=== PATIENT | female | born 1965 | race African-American/Black ===

== ENCOUNTER 2016-03-25 10:38 | Inpatient (IN) | payer BC, OTHER ==
[2016-03-25] VITALS (14 sets, daily range): BP systolic 85–137; BP diastolic 30–89
[~2016-03-25] VITALS: Ht 162.6 cm; Wt 111.5 kg
[~2016-03-25 10:38] MED LIST: AMIODARONE HCL 900 MG IV ONE
[2016-03-25] MEDS ORDERED: SODIUM CHLORIDE 0.9% 1,000 ML IV ONE (10:47)
[2016-03-25] MEDS ORDERED: ETOMIDATE (2MG/ML) 20ML VIAL IV ONE ×2 (10:50→17:15)
[2016-03-25] MEDS ORDERED: SUCCINYLCHOLINE CHLORIDE 20 MG/ML 10ML VIAL IV ONE ×2 (10:50→17:15)
[2016-03-25] MEDS ORDERED: cefTRIAXone 1GM/50ML D5W 50 ML IV ONE (11:00)
[2016-03-25] MEDS ORDERED: MIDAZOLAM DRIP 100 mg/100mL NS 100 ML IV ONE ×2 (11:06→16:16)
[2016-03-25] MEDS ORDERED: AMIODARONE HCL 900 MG in DEXTROSE 500 ML IV SCH ×2 (11:07→17:07)
[2016-03-25 11:12] LABS: Basophils # (auto) 0 uL; Basophils % (auto) 0.5 % (0.0-2.0); Eosinophils # (auto) 0 uL; Eosinophils % (auto) 0.7 % (0.0-7.0); Hematocrit 41.4 % (36.0-46.0); Hemoglobin 13.5 g/dL (12.2-16.2); Lymphocytes # (auto) 4.2 uL; Lymphocytes % (auto) 60.2 % (10.0-50.0); Mean Corpuscular Hemoglobin 30.7 pg (28.0-32.0); Mean Corpuscular Hgb Conc. 32.6 g/dL (32.0-36.0); Mean Corpuscular Volume 94.2 fL (80.0-100.0); Mean Platelet Volume 9.9 fL (7.4-10.4); Monocytes # (auto) 0.2 uL; Neutrophils # (auto) 2.5 uL; Neutrophils % (auto) 35.6 % (37.0-80.0); Platelet Count (auto) 221 10^3/uL (140-450); Red Cell Distribution Width 14.2 % (11.6-16.0); White Blood Cell 6.9 10^3/uL (4.4-10.8)
[2016-03-25] MEDS: MIDAZOLAM DRIP 100 mg/100mL NS 100 ML IV SCH ×2 (11:13→21:06)
[2016-03-25 11:22] LABS: Albumin 3.3 g/dL (3.4-5.0); Bilirubin, Total 0.3 mg/dL (0.2-1.0); Calcium 7.8 mg/dL (8.5-10.1); Potassium 3.4 mmol/L (3.5-5.1); Total Protein 7.8 g/dL (6.4-8.2)
[2016-03-25 11:25] LABS: B-Type Natriuretic Peptide 97.09 pg/mL (0-100)
[2016-03-25 11:26] LABS: INR 1.11 (0.9-1.15); Partial Thromboplastin Time 27.8 sec (22.64-33.71); Prothrombin Time 11.4 sec (9.37-12.3); REFLEX LACTIC ACID YES OR NO YES
[2016-03-25 12:38] LABS: Urine Bilirubin Negative (Negative); Urine Ca Oxalate Crystal FEW (None Seen); Urine Color Yellow (Yellow); Urine Glucose Normal (Normal); Urine Ketone Negative (Negative); Urine Mucus FEW (None Seen); Urine Nitrite Negative (Negative); Urine RBC 46 /hpf (0 - 4); Urine Squamous Epithelial Cell FEW /hpf (<5); Urine Urobilinogen Normal (Negative); Urine pH 6.5 (5.0-8.0)
[2016-03-25 12:45] LABS: Urine Blood 2+ /uL (Negative)
[2016-03-25 13:55] LABS: Lactic Acid 3.8 mmol/L (0.4-2.0)
[2016-03-25 14:05] LABS: REFLEX LACTIC ACID YES OR NO YES
[2016-03-25] MEDS ORDERED: PROMETHAZINE HCL 25 MG/ML 1ML IV PRN (14:15)
[2016-03-25] MEDS ORDERED: LORazepam 2MG/ML-1ML VIAL IV PRN (14:15)
[2016-03-25] MEDS ORDERED: MORPHINE SULF INJ 2 MG/ML SYRINGE 1ML IV PRN ×2 (14:15)
[2016-03-25] MEDS ORDERED: NITROGLYCERIN 0.4 MG SL TAB SL PRN (14:15)
[2016-03-25] MEDS ORDERED: DEXTROSE (50%) 50ML SYRG IV PRN (14:15)
[2016-03-25 15:07] LABS: Partial Thromboplastin Time 26.6 sec (22.64-33.71)
[2016-03-25 15:08] LABS: INR 1.17 (0.9-1.15)
[2016-03-25 15:25] LABS: Lactic Acid 3.8 mmol/L (0.4-2.0)
[2016-03-25 15:40] LABS: REFLEX LACTIC ACID YES OR NO NO
[2016-03-25 16:30] LABS: Hematocrit 42.6 % (36.0-46.0); Hemoglobin 13.9 g/dL (12.2-16.2)
[2016-03-25 16:50] LABS: Lactic Acid 2.8 mmol/L (0.4-2.0)
[2016-03-25 16:55] LABS: REFLEX LACTIC ACID YES OR NO NO
[2016-03-25] MEDS: PROPOFOL 100 ML IV SCH (17:59)
[2016-03-25] MEDS: InsuLIN REG 1unit/0.01ml Soln (100units/ml) SC SCH (19:40)
[2016-03-25] MEDS: ACCU-CHEK COMFORT CURVE STRIP VI SCH (19:40)
[2016-03-25 22:40] LABS: Hematocrit 43.3 % (36.0-46.0); Hemoglobin 14.1 g/dL (12.2-16.2)
[2016-03-26] VITALS (88 sets, daily range): BP systolic 91–145; BP diastolic 8–89
[2016-03-26] MEDS: ACCU-CHEK COMFORT CURVE STRIP VI SCH ×3 (00:20→12:00)
[2016-03-26] MEDS: PROPOFOL 100 ML IV SCH ×3 (00:27→15:11)
[2016-03-26] MEDS: InsuLIN REG 1unit/0.01ml Soln (100units/ml) SC SCH ×3 (05:59→12:00)
[2016-03-26 06:34] LABS: Albumin 2.8 g/dL (3.4-5.0); BUN/Creatinine Ratio 14.9; Bilirubin, Total 0.4 mg/dL (0.2-1.0); Calcium 7.4 mg/dL (8.5-10.1); Potassium 3.1 mmol/L (3.5-5.1); Total Protein 6.6 g/dL (6.4-8.2)
[2016-03-26 07:29] LABS: SUSPECT VIEW TRANSMISSION
[2016-03-26 07:46] LABS: Hematocrit 35.4 % (36.0-46.0); Hemoglobin 12.5 g/dL (12.2-16.2); Mean Corpuscular Hemoglobin 34.5 pg (28.0-32.0); Mean Corpuscular Hgb Conc. 35.4 g/dL (32.0-36.0); Mean Corpuscular Volume 97.3 fL (80.0-100.0); Mean Platelet Volume 9.9 fL (7.4-10.4); Platelet Count (auto) 131 10^3/uL (140-450); Red Cell Distribution Width 14.6 % (11.6-16.0); White Blood Cell 10.3 10^3/uL (4.4-10.8)
[2016-03-26 08:11] LABS: Burr Cells FEW; Large Platelets FEW; Metamyelocytes % 0; Myelocytes % 0; Platelet Estimate Decreased; Promyelocytes % 0; Reactive Lymphocytes 0
[2016-03-26] MEDS ORDERED: cefTRIAXone 1GM/50ML D5W 50 ML IV ONE (09:15)
[2016-03-26] MEDS: POTASSIUM CHL 20MEQ/100ML 100 ML IV SCH ×2 (13:39→15:11)
[2016-03-26] MEDS: PANTOPRAZOLE SODIUM 40 MG/10 ML VIAL IV SCH (13:39)
[2016-03-26] MEDS ORDERED: ENOXAPARIN SOD 40 MG/0.4 ML SYRINGE SC ONE (13:45)
[2016-03-26] MEDS: Fibersource Hn 1 Liter GT SCH (14:55)
[2016-03-26] MEDS: MIDAZOLAM DRIP 100 mg/100mL NS 100 ML IV SCH ×2 (15:11→18:13)
[2016-03-27] VITALS (68 sets, daily range): BP systolic 94–171; BP diastolic 41–104
[2016-03-27] MEDS ORDERED: cefTRIAXone 1GM/50ML D5W 50 ML IV SCH (09:00)
[2016-03-27] MEDS: PANTOPRAZOLE SODIUM 40 MG/10 ML VIAL IV SCH (10:13)
[2016-03-27] MEDS: ENOXAPARIN SOD 40 MG/0.4 ML SYRINGE SC SCH (10:13)
[2016-03-27] MEDS: MIDAZOLAM DRIP 100 mg/100mL NS 100 ML IV SCH (10:14)
[2016-03-27] MEDS: PROPOFOL 100 ML IV SCH ×2 (12:00→23:45)
[2016-03-27 14:27] LABS: Basophils # (auto) 0 uL; Basophils % (auto) 0.1 % (0.0-2.0); Eosinophils # (auto) 0 uL; Eosinophils % (auto) 0.1 % (0.0-7.0); Hematocrit 34.3 % (36.0-46.0); Hemoglobin 11.2 g/dL (12.2-16.2); Lymphocytes % (auto) 13.9 % (10.0-50.0); Mean Corpuscular Hemoglobin 30.5 pg (28.0-32.0); Mean Corpuscular Hgb Conc. 32.8 g/dL (32.0-36.0); Mean Corpuscular Volume 93.2 fL (80.0-100.0); Mean Platelet Volume 9.2 fL (7.4-10.4); Monocytes # (auto) 0.5 uL; Monocytes % (auto) 6.5 % (0.0-12.0); Neutrophils % (auto) 79.4 % (37.0-80.0); Platelet Count (auto) 156 10^3/uL (140-450); Red Cell Distribution Width 14.2 % (11.6-16.0); White Blood Cell 7.5 10^3/uL (4.4-10.8)
[2016-03-27 14:49] LABS: Albumin 2.5 g/dL (3.4-5.0); BUN/Creatinine Ratio 12.9; Calcium 7.7 mg/dL (8.5-10.1); Potassium 3.3 mmol/L (3.5-5.1)
[2016-03-27 14:51] LABS: Bilirubin, Total 0.3 mg/dL (0.2-1.0); Total Protein 6.4 g/dL (6.4-8.2)
[2016-03-27] MEDS ORDERED: POTASSIUM CHL 10% (20 MEQ/15ML) ORAL SOLN GT ONE (19:00)
[2016-03-27] MEDS: Fibersource Hn 1 Liter GT SCH (20:27)
[2016-03-28] VITALS (59 sets, daily range): BP systolic 94–164; BP diastolic 46–108
[2016-03-28] MEDS ORDERED: POTASSIUM CHL 10% (20 MEQ/15ML) ORAL SOLN GT ONE
[2016-03-28 04:21] LABS: Basophils # (auto) 0 uL; Basophils % (auto) 0.1 % (0.0-2.0); Eosinophils # (auto) 0 uL; Eosinophils % (auto) 0.6 % (0.0-7.0); Hematocrit 34.9 % (36.0-46.0); Hemoglobin 11.5 g/dL (12.2-16.2); Lymphocytes # (auto) 1.2 uL; Lymphocytes % (auto) 18.4 % (10.0-50.0); Mean Corpuscular Hemoglobin 30.8 pg (28.0-32.0); Mean Corpuscular Hgb Conc. 32.8 g/dL (32.0-36.0); Mean Corpuscular Volume 93.6 fL (80.0-100.0); Mean Platelet Volume 9.8 fL (7.4-10.4); Monocytes # (auto) 0.4 uL; Monocytes % (auto) 6.1 % (0.0-12.0); Neutrophils # (auto) 4.9 uL; Neutrophils % (auto) 74.8 % (37.0-80.0); Platelet Count (auto) 147 10^3/uL (140-450); Red Cell Distribution Width 14.2 % (11.6-16.0); White Blood Cell 6.6 10^3/uL (4.4-10.8)
[2016-03-28 04:29] LABS: BUN/Creatinine Ratio 12.1; Potassium 3.4 mmol/L (3.5-5.1)
[2016-03-28] MEDS: PROPOFOL 100 ML IV SCH ×4 (06:20→22:50)
[2016-03-28] MEDS: PANTOPRAZOLE SODIUM 40 MG/10 ML VIAL IV SCH (10:24)
[2016-03-28] MEDS: ENOXAPARIN SOD 40 MG/0.4 ML SYRINGE SC SCH (10:24)
[2016-03-28] MEDS ORDERED: IOHEXOL 350 MG/ML 100ML IJ ONE (15:36)
[2016-03-28] MEDS: MIDAZOLAM DRIP 100 mg/100mL NS 100 ML IV SCH (17:57)
[2016-03-28] MEDS: FREE WATER GT SCH ×2 (18:24→22:25)
[2016-03-28] MEDS ORDERED: MORPHINE SULF INJ 2 MG/ML SYRINGE 1ML ONE (18:38)
[2016-03-28] MEDS: Fibersource Hn 1 Liter GT SCH (20:00)
[2016-03-29] VITALS (61 sets, daily range): BP systolic 97–164; BP diastolic 47–101
[2016-03-29] MEDS: PROPOFOL 100 ML IV SCH ×3 (02:05→21:45)
[2016-03-29] MEDS: FREE WATER GT SCH ×6 (02:05→21:46)
[2016-03-29] MEDS: MORPHINE SULF INJ 2 MG/ML SYRINGE 1ML IV PRN ×4 (03:48→21:44)
[2016-03-29 03:55] LABS: Basophils # (auto) 0 uL; Basophils % (auto) 0.2 % (0.0-2.0); Eosinophils # (auto) 0.1 uL; Eosinophils % (auto) 1.4 % (0.0-7.0); Hematocrit 34.3 % (36.0-46.0); Hemoglobin 11.3 g/dL (12.2-16.2); Lymphocytes # (auto) 1.4 uL; Lymphocytes % (auto) 22.5 % (10.0-50.0); Mean Corpuscular Hemoglobin 30.8 pg (28.0-32.0); Mean Corpuscular Hgb Conc. 33.1 g/dL (32.0-36.0); Mean Corpuscular Volume 93.2 fL (80.0-100.0); Mean Platelet Volume 9.4 fL (7.4-10.4); Monocytes # (auto) 0.5 uL; Monocytes % (auto) 8.8 % (0.0-12.0); Neutrophils % (auto) 67.1 % (37.0-80.0); Platelet Count (auto) 158 10^3/uL (140-450); Red Cell Distribution Width 14.2 % (11.6-16.0)
[2016-03-29 06:25] LABS: Potassium 3.3 mmol/L (3.5-5.1)
[2016-03-29 06:35] LABS: BUN/Creatinine Ratio 12.9
[2016-03-29] MEDS ORDERED: CARVEDILOL 12.5 MG TAB ONE (09:49)
[2016-03-29] MEDS: ASPirin 81 mg TAB PO SCH (10:15)
[2016-03-29] MEDS: CARVEDILOL 3.125 MG TAB PO SCH ×2 (10:15→21:45)
[2016-03-29] MEDS: ENOXAPARIN SOD 40 MG/0.4 ML SYRINGE SC SCH (10:15)
[2016-03-29] MEDS: PANTOPRAZOLE SODIUM 40 MG/10 ML VIAL IV SCH (10:15)
[2016-03-29] MEDS ORDERED: SODIUM CHLORIDE 0.9% 1,000 ML IV SCH (11:45)
[2016-03-29] MEDS ORDERED: POTASSIUM CHL 10% (20 MEQ/15ML) ORAL SOLN GT ONE (11:45)
[2016-03-29] MEDS ORDERED: LIDOCAINE 1% HCL (LOCAL ANESTH.) INJ 20ML MDV ID ONE (14:45)
[2016-03-29] MEDS: SOD CHL 0.45% 1,000 ML IV SCH (15:00)
[2016-03-29] MEDS: MIDAZOLAM DRIP 100 mg/100mL NS 100 ML IV SCH (18:13)
[2016-03-29] MEDS ORDERED: POTASSIUM CHL 10% (20 MEQ/15ML) ORAL SOLN ONE (18:38)
[2016-03-29] MEDS ORDERED: LIDOCAINE HCL 100 MG/5ML (2%) SYRG INJ IV ONE (18:38)
[2016-03-29] MEDS ORDERED: AMIODARONE HCL 900 MG in DEXTROSE 500 ML IV SCH (18:43)
[2016-03-29] MEDS ORDERED: AMIODARONE HCL 150 MG in D5W 5% 100 ML IV ONE (18:45)
[2016-03-29] MEDS ORDERED: POTASSIUM CHL 10% (20 MEQ/15ML) ORAL SOLN PO ONE (18:45)
[2016-03-29] MEDS ORDERED: LIDOCAINE 50MG/5ML INJ 5ML SYRINGE IV ONE (18:45)
[2016-03-29] MEDS: SODIUM CHLOR 0.9% PF (SALINE LOCK) 10ML VIAL IV SCH (21:44)
[2016-03-29] MEDS: ATORVASTATIN 20 MG TAB PO SCH (21:45)
[2016-03-30] VITALS (54 sets, daily range): BP systolic 96–133; BP diastolic 51–83
[2016-03-30] MEDS ORDERED: AMIODARONE HCL 900 MG in DEXTROSE 500 ML IV SCH (00:43)
[2016-03-30] MEDS: SOD CHL 0.45% 1,000 ML IV SCH (00:56)
[2016-03-30] MEDS: FREE WATER GT SCH ×6 (02:00→22:04)
[2016-03-30] MEDS: PROPOFOL 100 ML IV SCH ×4 (05:30→22:03)
[2016-03-30] MEDS: MORPHINE SULF INJ 2 MG/ML SYRINGE 1ML IV PRN ×2 (05:31→18:23)
[2016-03-30 06:53] LABS: Basophils # (auto) 0 uL; Basophils % (auto) 0.2 % (0.0-2.0); Eosinophils # (auto) 0.1 uL; Hematocrit 31.3 % (36.0-46.0); Hemoglobin 10.2 g/dL (12.2-16.2); Lymphocytes # (auto) 1.4 uL; Lymphocytes % (auto) 23.3 % (10.0-50.0); Mean Corpuscular Hemoglobin 30.3 pg (28.0-32.0); Mean Corpuscular Hgb Conc. 32.5 g/dL (32.0-36.0); Monocytes # (auto) 0.5 uL; Monocytes % (auto) 8.6 % (0.0-12.0); Neutrophils % (auto) 65.9 % (37.0-80.0); Platelet Count (auto) 169 10^3/uL (140-450); Red Cell Distribution Width 13.9 % (11.6-16.0)
[2016-03-30 07:10] LABS: BUN/Creatinine Ratio 12.7; Calcium 7.5 mg/dL (8.5-10.1); Potassium 3.5 mmol/L (3.5-5.1)
[2016-03-30] MEDS: ENOXAPARIN SOD 40 MG/0.4 ML SYRINGE SC SCH (10:00)
[2016-03-30] MEDS ORDERED: POTASSIUM CHL 10% (20 MEQ/15ML) ORAL SOLN ONE (11:12)
[2016-03-30] MEDS ORDERED: D5W/SOD CHL 0.45%/KCL 40MEQ 1,000 ML IV ONE (11:12)
[2016-03-30] MEDS: ASPirin 81 mg TAB PO SCH (11:15)
[2016-03-30] MEDS: SODIUM CHLOR 0.9% PF (SALINE LOCK) 10ML VIAL IV SCH ×2 (11:15→22:04)
[2016-03-30] MEDS: PANTOPRAZOLE SODIUM 40 MG/10 ML VIAL IV SCH (11:15)
[2016-03-30] MEDS: D5W/SOD CHL 0.45%/KCL 40MEQ 1,000 ML IV SCH ×2 (11:15→21:15)
[2016-03-30] MEDS: CARVEDILOL 3.125 MG TAB PO SCH ×2 (11:15→22:02)
[2016-03-30] MEDS ORDERED: POTASSIUM CHL 10% (20 MEQ/15ML) ORAL SOLN GT ONE (11:15)
[2016-03-30] MEDS ORDERED: LIDOCAINE 2%HCL (LOCAL ANESTH.) INJ 20ML MDV ONE (11:56)
[2016-03-30] MEDS ORDERED: IODIXANOL 320MG/ML 100ML BTL IV ONE (11:58)
[2016-03-30] MEDS: MAGNESIUM SULFATE 1GM/100ML 100 ML IV SCH ×2 (12:13→15:11)
[2016-03-30] MEDS ORDERED: MIDAZOLAM HCL 1MG/1ML-2 ML VIAL ONE (14:03)
[2016-03-30] MEDS: MIDAZOLAM DRIP 100 mg/100mL NS 100 ML IV SCH (18:13)
[2016-03-30] MEDS: ATORVASTATIN 20 MG TAB PO SCH (22:02)
[2016-03-31] VITALS (69 sets, daily range): BP systolic 96–141; BP diastolic 40–81
[2016-03-31] MEDS: PROPOFOL 100 ML IV SCH ×3 (00:44→23:18)
[2016-03-31] MEDS: FREE WATER GT SCH ×5 (02:00→22:29)
[2016-03-31] MEDS: MORPHINE SULF INJ 2 MG/ML SYRINGE 1ML IV PRN (02:52)
[2016-03-31 04:19] LABS: Albumin 2.3 g/dL (3.4-5.0); BUN/Creatinine Ratio 10.5; Bilirubin, Total 0.3 mg/dL (0.2-1.0); Calcium 7.7 mg/dL (8.5-10.1); Magnesium 2.3 mg/dL (1.6-2.6); Phosphorus 3.5 mg/dL (2.6-4.90); Total Protein 6.4 g/dL (6.4-8.2)
[2016-03-31 04:30] LABS: Basophils # (auto) 0 uL; Basophils % (auto) 0.3 % (0.0-2.0); Eosinophils # (auto) 0.1 uL; Eosinophils % (auto) 1.8 % (0.0-7.0); Hematocrit 31.4 % (36.0-46.0); Hemoglobin 10.3 g/dL (12.2-16.2); Lymphocytes # (auto) 1.2 uL; Lymphocytes % (auto) 16.9 % (10.0-50.0); Mean Corpuscular Hemoglobin 30.8 pg (28.0-32.0); Mean Corpuscular Hgb Conc. 32.7 g/dL (32.0-36.0); Mean Corpuscular Volume 94.2 fL (80.0-100.0); Mean Platelet Volume 9.4 fL (7.4-10.4); Monocytes # (auto) 0.6 uL; Monocytes % (auto) 8.4 % (0.0-12.0); Neutrophils # (auto) 5.2 uL; Neutrophils % (auto) 72.6 % (37.0-80.0); Platelet Count (auto) 162 10^3/uL (140-450); Red Cell Distribution Width 13.9 % (11.6-16.0); White Blood Cell 7.1 10^3/uL (4.4-10.8)
[2016-03-31] MEDS: D5W/SOD CHL 0.45%/KCL 40MEQ 1,000 ML IV SCH ×2 (07:15→23:57)
[2016-03-31] MEDS: PANTOPRAZOLE SODIUM 40 MG/10 ML VIAL IV SCH (09:50)
[2016-03-31] MEDS: ASPirin 81 mg TAB PO SCH (09:50)
[2016-03-31] MEDS: CARVEDILOL 3.125 MG TAB PO SCH ×2 (09:51→22:28)
[2016-03-31] MEDS: SODIUM CHLOR 0.9% PF (SALINE LOCK) 10ML VIAL IV SCH ×2 (10:02→22:29)
[2016-03-31] MEDS: ENOXAPARIN SOD 40 MG/0.4 ML SYRINGE SC SCH (10:02)
[2016-03-31] MEDS: METOCLOPRAMIDE HCL 10 MG/10ml ORAL soln GT SCH ×2 (14:07→22:29)
[2016-03-31] MEDS: FUROSEMIDE 20 MG/2 ML VIAL IV SCH (18:00)
[2016-03-31] MEDS: MIDAZOLAM DRIP 100 mg/100mL NS 100 ML IV SCH (18:13)
[2016-03-31] MEDS: ATORVASTATIN 20 MG TAB PO SCH (22:29)
[2016-04-01] VITALS (68 sets, daily range): BP systolic 89–136; BP diastolic 41–84
[2016-04-01] MEDS: PROPOFOL 100 ML IV SCH ×6 (01:07→22:30)
[2016-04-01] MEDS: FREE WATER GT SCH ×4 (04:00→22:26)
[2016-04-01 04:39] LABS: Basophils # (auto) 0 uL; Basophils % (auto) 0.1 % (0.0-2.0); Eosinophils # (auto) 0.2 uL; Eosinophils % (auto) 2.4 % (0.0-7.0); Hematocrit 31.8 % (36.0-46.0); Hemoglobin 10.7 g/dL (12.2-16.2); Lymphocytes # (auto) 0.8 uL; Lymphocytes % (auto) 10.5 % (10.0-50.0); Mean Corpuscular Hgb Conc. 33.5 g/dL (32.0-36.0); Mean Corpuscular Volume 92.3 fL (80.0-100.0); Mean Platelet Volume 8.6 fL (7.4-10.4); Monocytes # (auto) 0.1 uL; Monocytes % (auto) 1.4 % (0.0-12.0); Neutrophils # (auto) 6.8 uL; Neutrophils % (auto) 85.6 % (37.0-80.0); Platelet Count (auto) 182 10^3/uL (140-450); Red Cell Distribution Width 13.6 % (11.6-16.0)
[2016-04-01 05:06] LABS: Albumin 2.4 g/dL (3.4-5.0); BUN/Creatinine Ratio 13.1; Bilirubin, Total 0.3 mg/dL (0.2-1.0); Calcium 7.8 mg/dL (8.5-10.1); Total Protein 6.6 g/dL (6.4-8.2)
[2016-04-01] MEDS: METOCLOPRAMIDE HCL 10 MG/10ml ORAL soln GT SCH ×3 (05:48→22:26)
[2016-04-01] MEDS: FUROSEMIDE 20 MG/2 ML VIAL IV SCH ×2 (05:48→18:24)
[2016-04-01] MEDS: SODIUM CHLOR 0.9% PF (SALINE LOCK) 10ML VIAL IV SCH ×2 (10:43→22:26)
[2016-04-01] MEDS: PANTOPRAZOLE SODIUM 40 MG/10 ML VIAL IV SCH (10:43)
[2016-04-01] MEDS: ASPirin 81 mg TAB PO SCH (10:44)
[2016-04-01] MEDS: CARVEDILOL 3.125 MG TAB PO SCH ×2 (10:46→22:28)
[2016-04-01] MEDS: ENOXAPARIN SOD 40 MG/0.4 ML SYRINGE SC SCH (10:47)
[2016-04-01] MEDS ORDERED: D5W/SOD CHL 0.45%/KCL 40MEQ 1,000 ML IV SCH (11:15)
[2016-04-01] MEDS: MIDAZOLAM DRIP 100 mg/100mL NS 100 ML IV SCH (18:13)
[2016-04-01] MEDS: D5W/SOD CHL 0.45%/KCL 40MEQ 1,000 ML IV SCH (20:30)
[2016-04-01] MEDS: ATORVASTATIN 20 MG TAB PO SCH (22:26)
[2016-04-02] VITALS (94 sets, daily range): BP systolic 84–127; BP diastolic 39–82
[2016-04-02] MEDS: PROPOFOL 100 ML IV SCH ×6 (02:00→21:57)
[2016-04-02] MEDS: FREE WATER GT SCH ×4 (04:27→21:56)
[2016-04-02] MEDS ORDERED: ACETAMINOPHEN 650 mg PER 20 mL UD ONE (05:32)
[2016-04-02] MEDS: FUROSEMIDE 20 MG/2 ML VIAL IV SCH ×2 (05:32→17:44)
[2016-04-02] MEDS: METOCLOPRAMIDE HCL 10 MG/10ml ORAL soln GT SCH (05:32)
[2016-04-02] MEDS: MORPHINE SULF INJ 2 MG/ML SYRINGE 1ML IV PRN (08:08)
[2016-04-02 08:11] LABS: BUN/Creatinine Ratio 13.5; Calcium 7.8 mg/dL (8.5-10.1); Potassium 3.6 mmol/L (3.5-5.1)
[2016-04-02 08:13] LABS: Basophils # (auto) 0 uL; Basophils % (auto) 0.1 % (0.0-2.0); Eosinophils # (auto) 0.1 uL; Eosinophils % (auto) 1.5 % (0.0-7.0); Hematocrit 32.8 % (36.0-46.0); Hemoglobin 11.1 g/dL (12.2-16.2); Lymphocytes # (auto) 0.9 uL; Lymphocytes % (auto) 10.9 % (10.0-50.0); Mean Corpuscular Hemoglobin 30.9 pg (28.0-32.0); Mean Corpuscular Volume 90.8 fL (80.0-100.0); Monocytes # (auto) 0.9 uL; Monocytes % (auto) 10.5 % (0.0-12.0); Neutrophils # (auto) 6.6 uL; Platelet Count (auto) 229 10^3/uL (140-450); Red Cell Distribution Width 13.1 % (11.6-16.0); White Blood Cell 8.5 10^3/uL (4.4-10.8)
[2016-04-02] MEDS: Fibersource Hn 1 Liter GT SCH (09:00)
[2016-04-02] MEDS: ENOXAPARIN SOD 40 MG/0.4 ML SYRINGE SC SCH (10:12)
[2016-04-02] MEDS: PANTOPRAZOLE SODIUM 40 MG/10 ML VIAL IV SCH (10:12)
[2016-04-02] MEDS: SODIUM CHLOR 0.9% PF (SALINE LOCK) 10ML VIAL IV SCH ×2 (10:14→21:57)
[2016-04-02] MEDS: CARVEDILOL 3.125 MG TAB PO SCH ×2 (10:14→22:00)
[2016-04-02] MEDS: ASPirin 81 mg TAB PO SCH (10:15)
[2016-04-02] MEDS ORDERED: cefTRIAXone 1GM/50ML D5W 50 ML IV ONE (11:00)
[2016-04-02] MEDS ORDERED: VANCOMYCIN PER PHARMACY 0 MG IV SCH (11:00)
[2016-04-02] MEDS ORDERED: AMIODARONE HCL 150 MG in D5W 5% 100 ML IV ONE (11:30)
[2016-04-02] MEDS: VANCOMYCIN 1,250 MG in D5W 5% 250 ML IV SCH ×2 (11:31→23:39)
[2016-04-02] MEDS ORDERED: AMIODARONE HCL 900 MG in DEXTROSE 500 ML IV SCH (11:38)
[2016-04-02] MEDS: D5W/SOD CHL 0.45%/KCL 40MEQ 1,000 ML IV SCH (15:15)
[2016-04-02] MEDS: AMIODARONE HCL 900 MG in DEXTROSE 500 ML IV SCH (17:38)
[2016-04-02] MEDS: MIDAZOLAM DRIP 100 mg/100mL NS 100 ML IV SCH (18:13)
[2016-04-02] MEDS: ATORVASTATIN 20 MG TAB PO SCH (21:57)
[2016-04-03] VITALS (100 sets, daily range): BP systolic 79–177; BP diastolic 33–99
[2016-04-03] MEDS ORDERED: NOREPINEPHRINE BITARTRATE 250 ML IV ONE (01:47)
[2016-04-03] MEDS: NOREPINEPHRINE BITARTRATE 250 ML IV SCH (02:13)
[2016-04-03] MEDS: PROPOFOL 100 ML IV SCH ×5 (02:20→10:55)
[2016-04-03 04:09] LABS: Albumin 2.4 g/dL (3.4-5.0); BUN/Creatinine Ratio 14.3; Bilirubin, Total 0.5 mg/dL (0.2-1.0); Calcium 7.8 mg/dL (8.5-10.1); Potassium 3.5 mmol/L (3.5-5.1); Total Protein 6.8 g/dL (6.4-8.2)
[2016-04-03] MEDS: FREE WATER GT SCH ×4 (04:22→22:14)
[2016-04-03] MEDS: ACETAMINOPHEN 650 mg PER 20 mL UD GT PRN (04:25)
[2016-04-03] MEDS: FUROSEMIDE 20 MG/2 ML VIAL IV SCH (06:25)
[2016-04-03] MEDS: cefTRIAXone 1GM/50ML D5W 50 ML IV SCH (09:00)
[2016-04-03] MEDS: ASPirin 81 mg TAB PO SCH (09:34)
[2016-04-03] MEDS: PANTOPRAZOLE SODIUM 40 MG/10 ML VIAL IV SCH (09:34)
[2016-04-03] MEDS: ENOXAPARIN SOD 40 MG/0.4 ML SYRINGE SC SCH (09:34)
[2016-04-03] MEDS: CARVEDILOL 3.125 MG TAB PO SCH ×2 (10:00→22:00)
[2016-04-03] MEDS: SODIUM CHLOR 0.9% PF (SALINE LOCK) 10ML VIAL IV SCH ×2 (10:00→22:14)
[2016-04-03] MEDS: D5W/SOD CHL 0.45%/KCL 40MEQ 1,000 ML IV SCH (11:15)
[2016-04-03] MEDS: VANCOMYCIN 1,250 MG in D5W 5% 250 ML IV SCH (12:00)
[2016-04-03] MEDS: AMIODARONE HCL 900 MG in DEXTROSE 500 ML IV SCH (15:32)
[2016-04-03] MEDS ORDERED: EPINEPHrine HCL 0.5 ML NEB ONE (15:36)
[2016-04-03] MEDS ORDERED: methylPREDNISolone SOD SUCC 125 MG/2 ML VL ONE (15:50)
[2016-04-03] MEDS ORDERED: diphenhdrAMINE HCL 50 MG/1 ML VL ONE (15:51)
[2016-04-03] MEDS ORDERED: diphenhdrAMINE HCL 50 MG/1 ML VL IV ONE (16:00)
[2016-04-03] MEDS ORDERED: methylPREDNISolone SOD SUCC 125 MG/2 ML VL IV ONE (16:00)
[2016-04-03] MEDS ORDERED: EPINEPHrine HCL 0.5 ML NEB NEB ONE (16:15)
[2016-04-03 17:06] LABS: Basophils # (auto) 0 uL; Basophils % (auto) 0.3 % (0.0-2.0); Eosinophils # (auto) 0.2 uL; Eosinophils % (auto) 2.3 % (0.0-7.0); Hematocrit 37.4 % (36.0-46.0); Hemoglobin 12.3 g/dL (12.2-16.2); Lymphocytes # (auto) 1.3 uL; Lymphocytes % (auto) 11.8 % (10.0-50.0); Mean Corpuscular Hemoglobin 30.7 pg (28.0-32.0); Mean Corpuscular Hgb Conc. 32.8 g/dL (32.0-36.0); Mean Corpuscular Volume 93.4 fL (80.0-100.0); Mean Platelet Volume 8.7 fL (7.4-10.4); Monocytes # (auto) 0.8 uL; Monocytes % (auto) 7.6 % (0.0-12.0); Neutrophils # (auto) 8.6 uL; Platelet Count (auto) 314 10^3/uL (140-450); Red Cell Distribution Width 13.2 % (11.6-16.0)
[2016-04-03 17:23] LABS: Albumin 2.6 g/dL (3.4-5.0); BUN/Creatinine Ratio 10.3; Calcium 7.9 mg/dL (8.5-10.1); Potassium 3.9 mmol/L (3.5-5.1)
[2016-04-03 17:25] LABS: Bilirubin, Total 0.4 mg/dL (0.2-1.0); Total Protein 7.6 g/dL (6.4-8.2)
[2016-04-03] MEDS ORDERED: fentaNYL Drip 2500mCg/250mlNS 250 ML IV SCH (18:25)
[2016-04-03] MEDS: fentaNYL Drip 2500mCg/250mlNS 250 ML IV SCH (18:42)
[2016-04-03] MEDS: MIDAZOLAM DRIP 100 mg/100mL NS 100 ML IV SCH (20:45)
[2016-04-03] MEDS: ATORVASTATIN 20 MG TAB PO SCH (22:15)
[2016-04-04] VITALS (102 sets, daily range): BP systolic 97–145; BP diastolic 47–93
[2016-04-04] MEDS: PROPOFOL 100 ML IV SCH ×2 (00:59→01:51)
[2016-04-04] MEDS: NOREPINEPHRINE BITARTRATE 250 ML IV SCH (01:47)
[2016-04-04 04:00] LABS: Basophils # (auto) 0 uL; Eosinophils # (auto) 0 uL; Hematocrit 34.2 % (36.0-46.0); Hemoglobin 11.2 g/dL (12.2-16.2); Lymphocytes # (auto) 0.6 uL; Lymphocytes % (auto) 5.3 % (10.0-50.0); Mean Corpuscular Hemoglobin 30.2 pg (28.0-32.0); Mean Corpuscular Hgb Conc. 32.8 g/dL (32.0-36.0); Mean Corpuscular Volume 92.1 fL (80.0-100.0); Mean Platelet Volume 8.9 fL (7.4-10.4); Monocytes # (auto) 0.7 uL; Neutrophils # (auto) 10.7 uL; Neutrophils % (auto) 88.7 % (37.0-80.0); Platelet Count (auto) 290 10^3/uL (140-450); Red Cell Distribution Width 12.9 % (11.6-16.0)
[2016-04-04] MEDS: FREE WATER GT SCH ×3 (04:00→18:00)
[2016-04-04 04:27] LABS: Albumin 2.4 g/dL (3.4-5.0); BUN/Creatinine Ratio 14.3; Bilirubin, Total 0.3 mg/dL (0.2-1.0); Calcium 7.8 mg/dL (8.5-10.1); Potassium 4.1 mmol/L (3.5-5.1); Total Protein 7.1 g/dL (6.4-8.2)
[2016-04-04] MEDS: cefTRIAXone 1GM/50ML D5W 50 ML IV SCH (09:08)
[2016-04-04] MEDS: D5W/SOD CHL 0.45%/KCL 40MEQ 1,000 ML IV SCH (09:09)
[2016-04-04] MEDS: CARVEDILOL 3.125 MG TAB PO SCH ×2 (10:00→22:00)
[2016-04-04] MEDS: PANTOPRAZOLE SODIUM 40 MG/10 ML VIAL IV SCH (10:12)
[2016-04-04] MEDS: ENOXAPARIN SOD 40 MG/0.4 ML SYRINGE SC SCH (10:20)
[2016-04-04] MEDS: ASPirin 81 mg TAB PO SCH (10:27)
[2016-04-04] MEDS: SODIUM CHLOR 0.9% PF (SALINE LOCK) 10ML VIAL IV SCH ×2 (10:27→22:20)
[2016-04-04] MEDS: MIDAZOLAM DRIP 100 mg/100mL NS 100 ML IV SCH (11:02)
[2016-04-04] MEDS: VANCOMYCIN 1,250 MG in D5W 5% 250 ML IV SCH ×3 (12:39)
[2016-04-04] MEDS: DEXAMETHASONE SOD PHOS 4 MG/1ML SDV INJ IV SCH (18:30)
[2016-04-04] MEDS: fentaNYL Drip 2500mCg/250mlNS 250 ML IV SCH (18:31)
[2016-04-04] MEDS: ATORVASTATIN 20 MG TAB PO SCH (22:20)
[2016-04-05] VITALS (103 sets, daily range): BP systolic 95–170; BP diastolic 47–104
[2016-04-05] MEDS: VANCOMYCIN 1,250 MG in D5W 5% 250 ML IV SCH ×2
[2016-04-05] MEDS: DEXAMETHASONE SOD PHOS 4 MG/1ML SDV INJ IV SCH ×4 (01:20→17:59)
[2016-04-05] MEDS: NOREPINEPHRINE BITARTRATE 250 ML IV SCH (01:47)
[2016-04-05] MEDS: D5W/SOD CHL 0.45%/KCL 40MEQ 1,000 ML IV SCH (03:41)
[2016-04-05 04:01] LABS: Basophils # (auto) 0 uL; Eosinophils # (auto) 0 uL; Hematocrit 34.8 % (36.0-46.0); Hemoglobin 11.3 g/dL (12.2-16.2); Lymphocytes # (auto) 0.6 uL; Lymphocytes % (auto) 8.2 % (10.0-50.0); Mean Corpuscular Hemoglobin 30.1 pg (28.0-32.0); Mean Corpuscular Hgb Conc. 32.6 g/dL (32.0-36.0); Mean Corpuscular Volume 92.5 fL (80.0-100.0); Mean Platelet Volume 8.8 fL (7.4-10.4); Monocytes # (auto) 0.4 uL; Monocytes % (auto) 5.7 % (0.0-12.0); Neutrophils # (auto) 6.6 uL; Neutrophils % (auto) 86.1 % (37.0-80.0); Platelet Count (auto) 312 10^3/uL (140-450); Red Cell Distribution Width 13.1 % (11.6-16.0); White Blood Cell 7.7 10^3/uL (4.4-10.8)
[2016-04-05 04:02] LABS: BUN/Creatinine Ratio 18.3; Calcium 8.3 mg/dL (8.5-10.1); Potassium 4.3 mmol/L (3.5-5.1)
[2016-04-05] MEDS: FREE WATER GT SCH ×4 (05:51→17:59)
[2016-04-05] MEDS: PANTOPRAZOLE SODIUM 40 MG/10 ML VIAL IV SCH (09:54)
[2016-04-05] MEDS: ceFAZolin 1GM/50ML D5W 50 ML IV SCH ×3 (09:54→21:00)
[2016-04-05] MEDS: ENOXAPARIN SOD 40 MG/0.4 ML SYRINGE SC SCH (09:54)
[2016-04-05] MEDS: ASPirin 81 mg TAB PO SCH (09:54)
[2016-04-05] MEDS: SODIUM CHLOR 0.9% PF (SALINE LOCK) 10ML VIAL IV SCH ×2 (09:55→22:00)
[2016-04-05] MEDS: CARVEDILOL 3.125 MG TAB PO SCH ×2 (10:38→22:00)
[2016-04-05] MEDS: MIDAZOLAM DRIP 100 mg/100mL NS 100 ML IV SCH (13:23)
[2016-04-05] MEDS: Isosource 1.5 Cal 1 Liter GT SCH (13:41)
[2016-04-05] MEDS: PROPOFOL 100 ML IV SCH (17:30)
[2016-04-05] MEDS: fentaNYL Drip 2500mCg/250mlNS 250 ML IV SCH (18:40)
[2016-04-05] MEDS: ATORVASTATIN 20 MG TAB PO SCH (22:00)
[2016-04-06] VITALS (98 sets, daily range): BP systolic 101–160; BP diastolic 49–94
[2016-04-06] MEDS: ceFAZolin 1GM/50ML D5W 50 ML IV SCH ×4 (03:00→21:00)
[2016-04-06 04:06] LABS: Basophils # (auto) 0 uL; Basophils % (auto) 0.1 % (0.0-2.0); Eosinophils # (auto) 0 uL; Hematocrit 33.8 % (36.0-46.0); Hemoglobin 11.1 g/dL (12.2-16.2); Lymphocytes # (auto) 0.5 uL; Mean Corpuscular Hemoglobin 30.4 pg (28.0-32.0); Mean Corpuscular Hgb Conc. 32.9 g/dL (32.0-36.0); Mean Corpuscular Volume 92.4 fL (80.0-100.0); Mean Platelet Volume 9.1 fL (7.4-10.4); Monocytes # (auto) 0.3 uL; Monocytes % (auto) 3.6 % (0.0-12.0); Neutrophils # (auto) 7.2 uL; Neutrophils % (auto) 90.3 % (37.0-80.0); Platelet Count (auto) 278 10^3/uL (140-450); Red Cell Distribution Width 12.8 % (11.6-16.0); White Blood Cell 7.9 10^3/uL (4.4-10.8)
[2016-04-06 04:23] LABS: INR 1.11 (0.9-1.15); Partial Thromboplastin Time 24.8 sec (22.64-33.71); Prothrombin Time 11.4 sec (9.37-12.3)
[2016-04-06 04:26] LABS: Albumin 2.4 g/dL (3.4-5.0); BUN/Creatinine Ratio 24.5; Bilirubin, Total 0.3 mg/dL (0.2-1.0); Calcium 8.1 mg/dL (8.5-10.1); Total Protein 7.1 g/dL (6.4-8.2)
[2016-04-06] MEDS: FREE WATER GT SCH ×4 (05:27→17:30)
[2016-04-06] MEDS: DEXAMETHASONE SOD PHOS 4 MG/1ML SDV INJ IV SCH ×3 (05:27→12:22)
[2016-04-06] MEDS: ENOXAPARIN SOD 40 MG/0.4 ML SYRINGE SC SCH (09:17)
[2016-04-06] MEDS: CARVEDILOL 3.125 MG TAB PO SCH ×2 (09:18→22:00)
[2016-04-06] MEDS: PANTOPRAZOLE SODIUM 40 MG/10 ML VIAL IV SCH (09:34)
[2016-04-06] MEDS: SODIUM CHLOR 0.9% PF (SALINE LOCK) 10ML VIAL IV SCH ×2 (09:34→22:21)
[2016-04-06] MEDS: D5W/SOD CHL 0.45%/KCL 40MEQ 1,000 ML IV SCH (09:34)
[2016-04-06] MEDS: AMIODARONE HCL 200 MG TAB PO SCH (09:35)
[2016-04-06] MEDS: NOREPINEPHRINE BITARTRATE 250 ML IV SCH (10:57)
[2016-04-06] MEDS ORDERED: HYDROmorphone HCL 2 MG/ML VL ONE (12:21)
[2016-04-06] MEDS ORDERED: MIDAZOLAM HCL 1MG/1ML-2 ML VIAL ONE ×2 (12:22→13:29)
[2016-04-06] MEDS ORDERED: ROCURONIUM 10MG/ML 10ML VIAL IV ONE (12:22)
[2016-04-06] MEDS ORDERED: fentaNYL CITRATE 100 MCG/2 ML VL ONE ×2 (12:22→13:13)
[2016-04-06] MEDS ORDERED: DEXAMETHASONE SOD PHOS 10MG/1ML VIAL INJ ONE (12:22)
[2016-04-06] MEDS ORDERED: ceFAZolin 1GM/50ML D5W 50 ML IV ONE (12:43)
[2016-04-06] MEDS: ASPirin 81 mg TAB PO SCH (15:12)
[2016-04-06] MEDS: PROPOFOL 100 ML IV SCH (19:55)
[2016-04-07] VITALS (102 sets, daily range): BP systolic 83–185; BP diastolic 37–93
[2016-04-07] MEDS: ceFAZolin 1GM/50ML D5W 50 ML IV SCH ×4 (03:00→21:21)
[2016-04-07 03:48] LABS: Basophils # (auto) 0 uL; Basophils % (auto) 0.1 % (0.0-2.0); Eosinophils # (auto) 0 uL; Hematocrit 33.8 % (36.0-46.0); Lymphocytes # (auto) 0.9 uL; Lymphocytes % (auto) 8.8 % (10.0-50.0); Mean Corpuscular Hemoglobin 30.2 pg (28.0-32.0); Mean Corpuscular Hgb Conc. 32.5 g/dL (32.0-36.0); Mean Corpuscular Volume 93.1 fL (80.0-100.0); Mean Platelet Volume 8.7 fL (7.4-10.4); Monocytes # (auto) 1.1 uL; Neutrophils % (auto) 80.1 % (37.0-80.0); Platelet Count (auto) 342 10^3/uL (140-450); Red Cell Distribution Width 12.8 % (11.6-16.0); White Blood Cell 9.9 10^3/uL (4.4-10.8)
[2016-04-07 04:00] LABS: BUN/Creatinine Ratio 21.9; Calcium 8.2 mg/dL (8.5-10.1)
[2016-04-07] MEDS: FREE WATER GT SCH ×4 (05:59→19:30)
[2016-04-07] MEDS: NOREPINEPHRINE BITARTRATE 250 ML IV SCH (08:00)
[2016-04-07] MEDS: MIDAZOLAM DRIP 100 mg/100mL NS 100 ML IV SCH ×2 (08:24→21:18)
[2016-04-07] MEDS: ASPirin 81 mg TAB PO SCH (10:00)
[2016-04-07] MEDS: AMIODARONE HCL 200 MG TAB PO SCH (10:19)
[2016-04-07] MEDS: ENOXAPARIN SOD 40 MG/0.4 ML SYRINGE SC SCH (10:20)
[2016-04-07] MEDS: PANTOPRAZOLE SODIUM 40 MG/10 ML VIAL IV SCH (10:20)
[2016-04-07] MEDS: CARVEDILOL 3.125 MG TAB PO SCH ×2 (10:20→22:32)
[2016-04-07] MEDS: SODIUM CHLOR 0.9% PF (SALINE LOCK) 10ML VIAL IV SCH ×2 (10:30→22:32)
[2016-04-07] MEDS ORDERED: ONDANSETRON HCL 4 MG/2 ML VIAL ONE (17:06)
[2016-04-07] MEDS ORDERED: ONDANSETRON HCL 4 MG/2 ML VIAL IV PRN (17:15)
[2016-04-07] MEDS ORDERED: PROPOFOL 100 ML IV SCH (17:30)
[2016-04-07] MEDS: fentaNYL Drip 2500mCg/250mlNS 250 ML IV SCH ×2 (21:29→21:31)
[2016-04-07] MEDS: ATORVASTATIN 20 MG TAB PO SCH ×2 (22:32)
[2016-04-08] VITALS (77 sets, daily range): BP systolic 83–154; BP diastolic 47–107
[2016-04-08] MEDS: FREE WATER GT SCH ×5 (00:01→23:43)
[2016-04-08] MEDS: fentaNYL Drip 2500mCg/250mlNS 250 ML IV SCH (02:06)
[2016-04-08] MEDS: ceFAZolin 1GM/50ML D5W 50 ML IV SCH ×4 (03:05→21:10)
[2016-04-08 07:29] LABS: Basophils # (auto) 0.1 uL; Basophils % (auto) 0.8 % (0.0-2.0); Eosinophils # (auto) 0.2 uL; Eosinophils % (auto) 2.7 % (0.0-7.0); Hematocrit 37.2 % (36.0-46.0); Hemoglobin 12.4 g/dL (12.2-16.2); Lymphocytes # (auto) 2.4 uL; Lymphocytes % (auto) 26.5 % (10.0-50.0); Mean Corpuscular Hemoglobin 30.6 pg (28.0-32.0); Mean Corpuscular Hgb Conc. 33.3 g/dL (32.0-36.0); Mean Platelet Volume 9.1 fL (7.4-10.4); Monocytes % (auto) 10.9 % (0.0-12.0); Neutrophils # (auto) 5.4 uL; Neutrophils % (auto) 59.1 % (37.0-80.0); Platelet Count (auto) 283 10^3/uL (140-450); Red Cell Distribution Width 12.9 % (11.6-16.0); White Blood Cell 9.1 10^3/uL (4.4-10.8)
[2016-04-08] MEDS: MORPHINE SULF INJ 2 MG/ML SYRINGE 1ML IV PRN (07:35)
[2016-04-08] MEDS ORDERED: LORazepam 2MG/ML-1ML VIAL ONE (07:56)
[2016-04-08 08:01] LABS: Albumin 2.5 g/dL (3.4-5.0); BUN/Creatinine Ratio 17.9; Bilirubin, Total 0.5 mg/dL (0.2-1.0); Calcium 8.3 mg/dL (8.5-10.1); Potassium 4.5 mmol/L (3.5-5.1); Total Protein 6.9 g/dL (6.4-8.2)
[2016-04-08] MEDS ORDERED: LORazepam 2MG/ML-1ML VIAL IV ONE ×2 (08:15)
[2016-04-08] MEDS: ENOXAPARIN SOD 40 MG/0.4 ML SYRINGE SC SCH (09:17)
[2016-04-08] MEDS: PANTOPRAZOLE SODIUM 40 MG/10 ML VIAL IV SCH (09:17)
[2016-04-08] MEDS: SODIUM CHLOR 0.9% PF (SALINE LOCK) 10ML VIAL IV SCH ×2 (09:18→22:42)
[2016-04-08] MEDS: AMIODARONE HCL 200 MG TAB PO SCH (10:00)
[2016-04-08] MEDS: ASPirin 81 mg TAB PO SCH (10:00)
[2016-04-08] MEDS ORDERED: LORazepam 2MG/ML-1ML VIAL IV PRN (10:00)
[2016-04-08] MEDS: CARVEDILOL 3.125 MG TAB PO SCH ×2 (10:00→22:42)
[2016-04-08] MEDS: ATORVASTATIN 20 MG TAB PO SCH (22:42)
[2016-04-09] VITALS (47 sets, daily range): BP systolic 91–146; BP diastolic 47–93
[2016-04-09] MEDS: fentaNYL Drip 2500mCg/250mlNS 250 ML IV SCH
[2016-04-09] MEDS: Isosource 1.5 Cal 1 Liter GT SCH (00:02)
[2016-04-09] MEDS: ceFAZolin 1GM/50ML D5W 50 ML IV SCH ×4 (03:12→21:00)
[2016-04-09] MEDS: HALOPERIDOL LACTATE 5 MG/ML INJ VIAL IM PRN ×3 (03:57→16:10)
[2016-04-09] MEDS: FREE WATER GT SCH ×4 (06:00→23:34)
[2016-04-09] MEDS: ASPirin 81 mg TAB PO SCH (10:18)
[2016-04-09] MEDS: PANTOPRAZOLE SODIUM 40 MG/10 ML VIAL IV SCH (10:18)
[2016-04-09] MEDS: AMIODARONE HCL 200 MG TAB PO SCH (10:18)
[2016-04-09] MEDS: SODIUM CHLOR 0.9% PF (SALINE LOCK) 10ML VIAL IV SCH ×2 (10:18→22:21)
[2016-04-09] MEDS: CARVEDILOL 3.125 MG TAB PO SCH ×2 (10:18→22:23)
[2016-04-09] MEDS: ENOXAPARIN SOD 40 MG/0.4 ML SYRINGE SC SCH (10:19)
[2016-04-09] MEDS: ATORVASTATIN 20 MG TAB PO SCH (22:23)
[2016-04-09] MEDS: ACETAMINOPHEN 650 mg PER 20 mL UD GT PRN (22:24)
[2016-04-10] VITALS (7 sets, daily range): BP systolic 135–154; BP diastolic 84–99
[2016-04-10] MEDS: HALOPERIDOL LACTATE 5 MG/ML INJ VIAL IM PRN ×2 (03:38→22:34)
[2016-04-10] MEDS: ceFAZolin 1GM/50ML D5W 50 ML IV SCH ×4 (03:38→20:08)
[2016-04-10] MEDS: FREE WATER GT SCH ×4 (06:50→23:37)
[2016-04-10] MEDS: ASPirin 81 mg TAB PO SCH (09:34)
[2016-04-10] MEDS: PANTOPRAZOLE SODIUM 40 MG/10 ML VIAL IV SCH (09:34)
[2016-04-10] MEDS: SODIUM CHLOR 0.9% PF (SALINE LOCK) 10ML VIAL IV SCH ×2 (09:34→21:56)
[2016-04-10] MEDS: AMIODARONE HCL 200 MG TAB PO SCH (09:34)
[2016-04-10] MEDS: CARVEDILOL 3.125 MG TAB PO SCH ×2 (09:34→22:32)
[2016-04-10] MEDS: ENOXAPARIN SOD 40 MG/0.4 ML SYRINGE SC SCH (09:35)
[2016-04-10] MEDS: ATORVASTATIN 20 MG TAB PO SCH (22:32)
[2016-04-11] VITALS (7 sets, daily range): BP systolic 139–167; BP diastolic 89–100
[2016-04-11] MEDS: ACETAMINOPHEN 650 mg PER 20 mL UD GT PRN (00:26)
[2016-04-11] MEDS: ceFAZolin 1GM/50ML D5W 50 ML IV SCH ×4 (02:16→21:00)
[2016-04-11] MEDS: MORPHINE SULF INJ 2 MG/ML SYRINGE 1ML IV PRN (03:55)
[2016-04-11] MEDS: FREE WATER GT SCH ×4 (05:21→23:56)
[2016-04-11 07:10] LABS: BUN/Creatinine Ratio 18.2; Potassium 3.6 mmol/L (3.5-5.1)
[2016-04-11 07:36] LABS: Basophils # (auto) 0.1 uL; Basophils % (auto) 1.1 % (0.0-2.0); Eosinophils # (auto) 0.4 uL; Eosinophils % (auto) 4.5 % (0.0-7.0); Hematocrit 33.8 % (36.0-46.0); Hemoglobin 10.9 g/dL (12.2-16.2); Lymphocytes # (auto) 1.3 uL; Lymphocytes % (auto) 15.2 % (10.0-50.0); Mean Corpuscular Hemoglobin 29.9 pg (28.0-32.0); Mean Corpuscular Hgb Conc. 32.3 g/dL (32.0-36.0); Mean Corpuscular Volume 92.5 fL (80.0-100.0); Mean Platelet Volume 8.5 fL (7.4-10.4); Monocytes # (auto) 0.7 uL; Neutrophils # (auto) 5.8 uL; Neutrophils % (auto) 70.2 % (37.0-80.0); Platelet Count (auto) 338 10^3/uL (140-450); Red Cell Distribution Width 13.1 % (11.6-16.0); White Blood Cell 8.2 10^3/uL (4.4-10.8)
[2016-04-11] MEDS: PANTOPRAZOLE SODIUM 40 MG/10 ML VIAL IV SCH (09:32)
[2016-04-11] MEDS: CARVEDILOL 3.125 MG TAB PO SCH ×2 (09:33→22:00)
[2016-04-11] MEDS: ASPirin 81 mg TAB PO SCH (09:33)
[2016-04-11] MEDS: AMIODARONE HCL 200 MG TAB PO SCH (09:33)
[2016-04-11] MEDS: SODIUM CHLOR 0.9% PF (SALINE LOCK) 10ML VIAL IV SCH ×2 (09:33→21:21)
[2016-04-11] MEDS ORDERED: LORazepam 2MG/ML-1ML VIAL IV PRN (11:45)
[2016-04-11] MEDS: SODIUM CHLORIDE 0.9% 1,000 ML IV SCH (11:45)
[2016-04-11] MEDS ORDERED: CALC-386 OR (18:00)
[2016-04-11] MEDS ORDERED: CYAN1TAB14 PO (18:00)
[2016-04-11] MEDS ORDERED: RANITAB8 PO (18:00)
[2016-04-11] MEDS ORDERED: SERT-135 PO (18:00)
[2016-04-11] MEDS: ATORVASTATIN 20 MG TAB PO SCH (22:00)
[2016-04-12] MEDS: SODIUM CHLORIDE 0.9% 1,000 ML IV SCH (00:31)
[2016-04-12] MEDS: ceFAZolin 1GM/50ML D5W 50 ML IV SCH ×4 (02:56→21:18)
[2016-04-12 04:18] VITALS: BP 144/65
[2016-04-12] MEDS: FREE WATER GT SCH (05:33)
[2016-04-12] MEDS ORDERED: VANCOMYCIN 1GM/250ML D5W 250 ML IV ONE (06:33)
[2016-04-12] MEDS ORDERED: SODIUM CHLORIDE 0.9% 300 ML IV ONE (06:45)
[2016-04-12] MEDS ORDERED: fentaNYL CITRATE 100 MCG/2 ML VL ONE (07:13)
[2016-04-12] MEDS ORDERED: MIDAZOLAM HCL 1MG/1ML-2 ML VIAL ONE (07:13)
[2016-04-12] MEDS ORDERED: VANCOMYCIN HCL 1000 MG VL ONE ×2 (07:13→07:29)
[2016-04-12] MEDS ORDERED: BACITRACIN INJ 50000 UNIT VIAL ONE (07:14)
[2016-04-12] MEDS ORDERED: LIDOCAINE 2%HCL (LOCAL ANESTH.) INJ 20ML MDV ONE (07:14)
[2016-04-12] MEDS ORDERED: LABETALOL HCL 5 MG/ML 4ML SYRINGE IV ONE (07:40)
[2016-04-12] MEDS: SODIUM CHLOR 0.9% PF (SALINE LOCK) 10ML VIAL IV SCH ×2 (10:12→21:30)
[2016-04-12] MEDS: PANTOPRAZOLE SODIUM 40 MG/10 ML VIAL IV SCH (10:19)
[2016-04-12] MEDS: DOXYCYCLINE 100 MG TAB PO SCH ×2 (10:19→21:29)
[2016-04-12] MEDS: AMIODARONE HCL 200 MG TAB PO SCH (10:20)
[2016-04-12] MEDS: CARVEDILOL 3.125 MG TAB PO SCH ×2 (10:21→21:29)
[2016-04-12] MEDS: ASPirin 81 mg TAB PO SCH (10:21)
[2016-04-12 12:00] VITALS: BP 150/94
[2016-04-12] MEDS ORDERED: POTASSIUM CHL 20 Meq TABLET PO ONE (12:30)
[2016-04-12] MEDS ORDERED: FUROSEMIDE 40 MG TAB PO ONE (12:30)
[2016-04-12] MEDS ORDERED: MORPHINE SULF INJ 2 MG/ML SYRINGE 1ML IV PRN (12:30)
[2016-04-12 16:00] VITALS: BP 147/102
[2016-04-12] MEDS: VANCOMYCIN 1GM/250ML D5W 250 ML IV SCH (19:23)
[2016-04-12 20:00] VITALS: BP 150/84
[2016-04-12] MEDS: ATORVASTATIN 20 MG TAB PO SCH (21:29)
[2016-04-13] VITALS (8 sets, daily range): BP systolic 102–162; BP diastolic 65–93
[2016-04-13] MEDS: ceFAZolin 1GM/50ML D5W 50 ML IV SCH ×4 (03:15→21:29)
[2016-04-13] MEDS: VANCOMYCIN 1GM/250ML D5W 250 ML IV SCH (06:49)
[2016-04-13] MEDS: PANTOPRAZOLE 40 MG TAB PO SCH (10:01)
[2016-04-13] MEDS: DOXYCYCLINE 100 MG TAB PO SCH (10:01)
[2016-04-13] MEDS: AMIODARONE HCL 200 MG TAB PO SCH (10:02)
[2016-04-13] MEDS: ASPirin 81 mg TAB PO SCH (10:02)
[2016-04-13] MEDS: FUROSEMIDE 40 MG TAB PO SCH (10:02)
[2016-04-13] MEDS: CARVEDILOL 3.125 MG TAB PO SCH ×2 (10:03→21:34)
[2016-04-13] MEDS: POTASSIUM CHL 20 Meq TABLET PO SCH (10:03)
[2016-04-13] MEDS: SODIUM CHLOR 0.9% PF (SALINE LOCK) 10ML VIAL IV SCH ×2 (10:04→21:34)
[2016-04-13] MEDS: HYDROcodone-ACET 5/325MG TAB PO PRN ×2 (12:01→19:51)
[2016-04-13] MEDS: THROAT LOZENGES(CEPASTAT) MT PRN (12:02)
[2016-04-13] MEDS: ATORVASTATIN 20 MG TAB PO SCH (21:34)
[2016-04-14] MEDS: ceFAZolin 1GM/50ML D5W 50 ML IV SCH ×2 (02:36→09:04)
[2016-04-14 04:50] VITALS: BP 140/70
[2016-04-14] MEDS: SODIUM CHLOR 0.9% PF (SALINE LOCK) 10ML VIAL IV SCH ×2 (09:12→21:48)
[2016-04-14 09:40] VITALS: BP 138/79
[2016-04-14] MEDS: POTASSIUM CHL 20 Meq TABLET PO SCH (09:58)
[2016-04-14] MEDS: CARVEDILOL 3.125 MG TAB PO SCH ×2 (09:59→21:50)
[2016-04-14] MEDS: ASPirin 81 mg TAB PO SCH (10:00)
[2016-04-14] MEDS: PANTOPRAZOLE 40 MG TAB PO SCH (10:00)
[2016-04-14] MEDS: FUROSEMIDE 40 MG TAB PO SCH (10:00)
[2016-04-14] MEDS: AMIODARONE HCL 200 MG TAB PO SCH (10:05)
[2016-04-14] MEDS: HYDROcodone-ACET 5/325MG TAB PO PRN (10:13)
[2016-04-14] MEDS ORDERED: ACETAMINOPHEN 650 mg PER 20 mL UD GT PRN (11:45)
[2016-04-14 14:04] VITALS: BP 147/78
[2016-04-14 16:31] VITALS: BP 152/78
[2016-04-14] MEDS: ATORVASTATIN 20 MG TAB PO SCH (21:48)
[2016-04-14 21:50] VITALS: BP 156/82
[2016-04-14 23:22] VITALS: BP 142/72
[2016-04-15] MEDS: HYDROcodone-ACET 5/325MG TAB PO PRN (03:57)
[2016-04-15 05:09] VITALS: BP 144/70
[2016-04-15 06:27] LABS: Basophils # (auto) 0 uL; Basophils % (auto) 0.3 % (0.0-2.0); Eosinophils # (auto) 0.2 uL; Eosinophils % (auto) 2.2 % (0.0-7.0); Hematocrit 30.8 % (36.0-46.0); Hemoglobin 10.2 g/dL (12.2-16.2); Lymphocytes # (auto) 1.1 uL; Lymphocytes % (auto) 12.7 % (10.0-50.0); Mean Corpuscular Hemoglobin 30.8 pg (28.0-32.0); Mean Corpuscular Hgb Conc. 33.1 g/dL (32.0-36.0); Mean Corpuscular Volume 92.9 fL (80.0-100.0); Mean Platelet Volume 9.1 fL (7.4-10.4); Monocytes # (auto) 0.7 uL; Monocytes % (auto) 8.2 % (0.0-12.0); Neutrophils # (auto) 6.6 uL; Neutrophils % (auto) 76.6 % (37.0-80.0); Platelet Count (auto) 218 10^3/uL (140-450); Red Cell Distribution Width 13.2 % (11.6-16.0); White Blood Cell 8.7 10^3/uL (4.4-10.8)
[2016-04-15 07:03] LABS: BUN/Creatinine Ratio 11.1; Calcium 7.9 mg/dL (8.5-10.1); Potassium 3.1 mmol/L (3.5-5.1)
[2016-04-15 09:00] VITALS: BP 127/69
[2016-04-15] MEDS: SODIUM CHLOR 0.9% PF (SALINE LOCK) 10ML VIAL IV SCH ×2 (11:48→22:00)
[2016-04-15] MEDS: ASPirin 81 mg TAB PO SCH (11:48)
[2016-04-15] MEDS: AMIODARONE HCL 200 MG TAB PO SCH (11:50)
[2016-04-15] MEDS: POTASSIUM CHL 20 Meq TABLET PO SCH (11:50)
[2016-04-15] MEDS: PANTOPRAZOLE 40 MG TAB PO SCH (11:51)
[2016-04-15] MEDS: FUROSEMIDE 40 MG TAB PO SCH (11:51)
[2016-04-15] MEDS: CARVEDILOL 3.125 MG TAB PO SCH ×2 (11:51→21:48)
[2016-04-15 13:00] VITALS: BP 160/112
[2016-04-15] MEDS ORDERED: POTASSIUM CHL 20 Meq TABLET PO ONE (14:45)
[2016-04-15 17:00] VITALS: BP 152/80
[2016-04-15] MEDS: ATORVASTATIN 20 MG TAB PO SCH (21:47)
[2016-04-15 21:48] VITALS: BP 158/83
[2016-04-16 04:35] VITALS: BP 145/68
[2016-04-16 09:00] VITALS: BP 152/77
[2016-04-16] MEDS: POTASSIUM CHL 20 Meq TABLET PO SCH (10:00)
[2016-04-16] MEDS ORDERED: POTASSIUM CHL 10% (20 MEQ/15ML) ORAL SOLN GT ONE (10:15)
[2016-04-16] MEDS ORDERED: POTASSIUM CHL 10% (20 MEQ/15ML) ORAL SOLN PO ONE (10:45)
[2016-04-16] MEDS: CARVEDILOL 3.125 MG TAB PO SCH ×2 (10:47→22:07)
[2016-04-16] MEDS: AMIODARONE HCL 200 MG TAB PO SCH (10:47)
[2016-04-16] MEDS: PANTOPRAZOLE 40 MG TAB PO SCH (10:47)
[2016-04-16] MEDS: FUROSEMIDE 40 MG TAB PO SCH (10:47)
[2016-04-16] MEDS: SODIUM CHLOR 0.9% PF (SALINE LOCK) 10ML VIAL IV SCH ×2 (10:48→22:15)
[2016-04-16] MEDS: ASPirin 81 mg TAB PO SCH (10:48)
[2016-04-16 13:00] VITALS: BP_SYST 124; BP_SYST 145; BP_DIAS 62; BP_DIAS 91
[2016-04-16 16:51] VITALS: BP 150/78
[2016-04-16 22:00] VITALS: BP 144/66
[2016-04-16] MEDS: ATORVASTATIN 20 MG TAB PO SCH (22:03)
[2016-04-17 05:00] VITALS: BP 127/76
[2016-04-17 09:00] VITALS: BP 127/71
[2016-04-17] MEDS: PANTOPRAZOLE 40 MG TAB PO SCH (10:13)
[2016-04-17] MEDS: FUROSEMIDE 40 MG TAB PO SCH (10:13)
[2016-04-17] MEDS: CARVEDILOL 3.125 MG TAB PO SCH ×2 (10:13→22:15)
[2016-04-17] MEDS: ASPirin 81 mg TAB PO SCH (10:13)
[2016-04-17] MEDS: POTASSIUM CHL 20 Meq TABLET PO SCH (10:14)
[2016-04-17] MEDS: AMIODARONE HCL 200 MG TAB PO SCH (10:14)
[2016-04-17] MEDS: SODIUM CHLOR 0.9% PF (SALINE LOCK) 10ML VIAL IV SCH ×2 (10:21→22:13)
[2016-04-17 13:00] VITALS: BP_SYST 115; BP_SYST 160; BP_DIAS 69; BP_DIAS 90
[2016-04-17 16:53] VITALS: BP 148/75
[2016-04-17 22:10] VITALS: BP 116/67
[2016-04-17] MEDS: ATORVASTATIN 20 MG TAB PO SCH (22:15)
[2016-04-18 01:49] VITALS: BP 124/73
[2016-04-18 05:00] VITALS: BP 128/78
[2016-04-18 05:50] LABS: Basophils # (auto) 0 uL; Basophils % (auto) 0.5 % (0.0-2.0); Eosinophils # (auto) 0.3 uL; Eosinophils % (auto) 5.7 % (0.0-7.0); Hematocrit 31.7 % (36.0-46.0); Hemoglobin 10.3 g/dL (12.2-16.2); Lymphocytes # (auto) 1.6 uL; Lymphocytes % (auto) 29.5 % (10.0-50.0); Mean Corpuscular Hemoglobin 30.2 pg (28.0-32.0); Mean Corpuscular Hgb Conc. 32.5 g/dL (32.0-36.0); Mean Platelet Volume 8.8 fL (7.4-10.4); Monocytes # (auto) 0.7 uL; Monocytes % (auto) 12.4 % (0.0-12.0); Neutrophils # (auto) 2.8 uL; Neutrophils % (auto) 51.9 % (37.0-80.0); Platelet Count (auto) 199 10^3/uL (140-450); Red Cell Distribution Width 13.3 % (11.6-16.0); White Blood Cell 5.4 10^3/uL (4.4-10.8)
[2016-04-18 06:01] LABS: Potassium 3.3 mmol/L (3.5-5.1)
[2016-04-18 06:08] LABS: BUN/Creatinine Ratio 3.1; Calcium 8.1 mg/dL (8.5-10.1)
[2016-04-18 09:00] VITALS: BP 119/78
[2016-04-18] MEDS ORDERED: POTASSIUM CHL 10% (20 MEQ/15ML) ORAL SOLN PO SCH (10:00)
[2016-04-18] MEDS: AMIODARONE HCL 200 MG TAB PO SCH (10:48)
[2016-04-18] MEDS: CARVEDILOL 3.125 MG TAB PO SCH ×2 (10:53→22:06)
[2016-04-18] MEDS: ASPirin 81 mg TAB PO SCH (10:53)
[2016-04-18] MEDS: PANTOPRAZOLE 40 MG TAB PO SCH (10:53)
[2016-04-18] MEDS: FUROSEMIDE 40 MG TAB PO SCH (10:53)
[2016-04-18] MEDS: SODIUM CHLOR 0.9% PF (SALINE LOCK) 10ML VIAL IV SCH ×2 (10:56→22:19)
[2016-04-18] MEDS: POTASSIUM CHL 20 Meq TABLET PO ONE ×2 (11:30→13:19)
[2016-04-18 12:57] VITALS: BP 110/74
[2016-04-18] MEDS ORDERED: POTASSIUM CHL 10% (20 MEQ/15ML) ORAL SOLN PO ONE (13:30)
[2016-04-18 16:50] VITALS: BP 141/77
[2016-04-18 22:00] VITALS: BP 114/62
[2016-04-18] MEDS: ATORVASTATIN 20 MG TAB PO SCH (22:05)
[2016-04-18] MEDS: LORazepam 2MG/ML-1ML VIAL IV PRN (22:09)
[2016-04-19 05:00] VITALS: BP 106/51
[2016-04-19 09:00] VITALS: BP 117/69
[2016-04-19] MEDS: AMIODARONE HCL 200 MG TAB PO SCH (10:43)
[2016-04-19] MEDS: ASPirin 81 mg TAB PO SCH (10:43)
[2016-04-19] MEDS: LORazepam 2MG/ML-1ML VIAL IV PRN ×2 (10:44→18:56)
[2016-04-19] MEDS: SODIUM CHLOR 0.9% PF (SALINE LOCK) 10ML VIAL IV SCH ×2 (10:44→21:39)
[2016-04-19] MEDS: PANTOPRAZOLE 40 MG TAB PO SCH (10:44)
[2016-04-19] MEDS: CARVEDILOL 3.125 MG TAB PO SCH ×2 (10:44→21:39)
[2016-04-19 13:00] VITALS: BP 113/74
[2016-04-19] MEDS ORDERED: MORPHINE SULF INJ 2 MG/ML SYRINGE 1ML IV PRN (13:45)
[2016-04-19 16:44] VITALS: BP 112/76
[2016-04-19 21:34] VITALS: BP 114/73
[2016-04-19] MEDS: ATORVASTATIN 20 MG TAB PO SCH (21:39)
[2016-04-20 05:05] VITALS: BP 110/62
[2016-04-20 09:00] VITALS: BP 102/70
[2016-04-20] MEDS: PANTOPRAZOLE 40 MG TAB PO SCH (09:35)
[2016-04-20] MEDS: ASPirin 81 mg TAB PO SCH (09:35)
[2016-04-20] MEDS: CARVEDILOL 3.125 MG TAB PO SCH ×2 (09:36→22:14)
[2016-04-20] MEDS: SODIUM CHLOR 0.9% PF (SALINE LOCK) 10ML VIAL IV SCH ×2 (09:36→21:57)
[2016-04-20] MEDS: AMIODARONE HCL 200 MG TAB PO SCH (09:36)
[2016-04-20] MEDS ORDERED: ONDANSETRON HCL 4 MG/2 ML VIAL IV PRN (12:45)
[2016-04-20 13:00] VITALS: BP 109/70
[2016-04-20 17:00] VITALS: BP 101/41
[2016-04-20] MEDS: LORazepam 2MG/ML-1ML VIAL IV PRN (18:12)
[2016-04-20] MEDS: THROAT LOZENGES(CEPASTAT) MT PRN (19:26)
[2016-04-20 21:25] VITALS: BP 101/59
[2016-04-20] MEDS: ATORVASTATIN 20 MG TAB PO SCH (22:12)
[2016-04-20] MEDS: HYDROcodone-ACET 5/325MG TAB PO PRN (22:19)
[2016-04-21] MEDS: LORazepam 2MG/ML-1ML VIAL IV PRN (02:32)
[2016-04-21 05:22] VITALS: BP 130/83
[2016-04-21 07:31] LABS: Basophils # (auto) 0 uL; Basophils % (auto) 0.4 % (0.0-2.0); Eosinophils # (auto) 0.3 uL; Eosinophils % (auto) 4.6 % (0.0-7.0); Hematocrit 34.1 % (36.0-46.0); Lymphocytes % (auto) 18.1 % (10.0-50.0); Mean Corpuscular Hemoglobin 30.1 pg (28.0-32.0); Mean Corpuscular Hgb Conc. 32.2 g/dL (32.0-36.0); Mean Corpuscular Volume 93.5 fL (80.0-100.0); Mean Platelet Volume 8.8 fL (7.4-10.4); Monocytes # (auto) 0.5 uL; Monocytes % (auto) 9.8 % (0.0-12.0); Neutrophils # (auto) 3.7 uL; Neutrophils % (auto) 67.1 % (37.0-80.0); Platelet Count (auto) 183 10^3/uL (140-450); Red Cell Distribution Width 13.7 % (11.6-16.0); White Blood Cell 5.5 10^3/uL (4.4-10.8)
[2016-04-21 07:53] LABS: BUN/Creatinine Ratio 13.6; Calcium 8.5 mg/dL (8.5-10.1); Potassium 3.6 mmol/L (3.5-5.1)
[2016-04-21 09:00] VITALS: BP 121/64
[2016-04-21] MEDS: AMIODARONE HCL 200 MG TAB PO SCH (10:12)
[2016-04-21] MEDS: PANTOPRAZOLE 40 MG TAB PO SCH (10:13)
[2016-04-21] MEDS: SODIUM CHLOR 0.9% PF (SALINE LOCK) 10ML VIAL IV SCH ×2 (10:13→22:07)
[2016-04-21] MEDS: ASPirin 81 mg TAB PO SCH (10:13)
[2016-04-21] MEDS: CARVEDILOL 3.125 MG TAB PO SCH ×2 (10:13→22:07)
[2016-04-21 13:00] VITALS: BP 120/70
[2016-04-21 17:00] VITALS: BP 119/54
[2016-04-21] MEDS: ATORVASTATIN 20 MG TAB PO SCH (22:02)
[2016-04-21 22:13] VITALS: BP 118/68
[2016-04-22 05:09] VITALS: BP 121/69
[2016-04-22 07:00] VITALS: BP 115/65
[2016-04-22] MEDS: PANTOPRAZOLE 40 MG TAB PO SCH (10:04)
[2016-04-22] MEDS: ASPirin 81 mg TAB PO SCH (10:05)
[2016-04-22] MEDS: AMIODARONE HCL 200 MG TAB PO SCH (10:06)
[2016-04-22] MEDS: CARVEDILOL 3.125 MG TAB PO SCH ×2 (10:06→21:27)
[2016-04-22] MEDS: SODIUM CHLOR 0.9% PF (SALINE LOCK) 10ML VIAL IV SCH ×2 (10:08→21:26)
[2016-04-22 11:45] VITALS: BP 118/77
[2016-04-22] MEDS: LORazepam 2MG/ML-1ML VIAL IV PRN (14:43)
[2016-04-22 16:00] VITALS: BP 117/65
[2016-04-22] MEDS: THROAT LOZENGES(CEPASTAT) MT PRN (16:36)
[2016-04-22] MEDS: ATORVASTATIN 20 MG TAB PO SCH (21:29)
[2016-04-22 22:23] VITALS: BP 124/71
[2016-04-23 03:43] VITALS: BP 124/71
[2016-04-23 04:53] VITALS: BP 125/75
[2016-04-23 08:45] VITALS: BP 106/71
[2016-04-23] MEDS: CARVEDILOL 3.125 MG TAB PO SCH ×2 (10:00→22:22)
[2016-04-23] MEDS: ASPirin 81 mg TAB PO SCH (10:00)
[2016-04-23] MEDS: PANTOPRAZOLE 40 MG TAB PO SCH (10:00)
[2016-04-23] MEDS: AMIODARONE HCL 200 MG TAB PO SCH (10:00)
[2016-04-23] MEDS: SODIUM CHLOR 0.9% PF (SALINE LOCK) 10ML VIAL IV SCH ×2 (10:03→22:00)
[2016-04-23] MEDS: LORazepam 2MG/ML-1ML VIAL IV PRN (12:34)
[2016-04-23 12:59] VITALS: BP 118/78
[2016-04-23 17:40] VITALS: BP 126/67
[2016-04-23 22:00] VITALS: BP 121/55
[2016-04-23] MEDS: ATORVASTATIN 20 MG TAB PO SCH (22:21)
[2016-04-24 05:04] VITALS: BP 119/70
[2016-04-24 05:53] LABS: Hematocrit 30.2 % (36.0-46.0); Hemoglobin 9.9 g/dL (12.2-16.2); Mean Corpuscular Hemoglobin 30.4 pg (28.0-32.0); Mean Corpuscular Hgb Conc. 32.8 g/dL (32.0-36.0); Mean Corpuscular Volume 92.6 fL (80.0-100.0); Mean Platelet Volume 9.1 fL (7.4-10.4); Platelet Count (auto) 150 10^3/uL (140-450); Red Cell Distribution Width 13.9 % (11.6-16.0); White Blood Cell 3.7 10^3/uL (4.4-10.8)
[2016-04-24 06:06] LABS: Metamyelocytes % 0; Myelocytes % 0; Promyelocytes % 0; Prothrombin Time 11.9 sec (9.37-12.3); Reactive Lymphocytes 0
[2016-04-24 06:14] LABS: BUN/Creatinine Ratio 9.7; Calcium 8.5 mg/dL (8.5-10.1); Magnesium 2.2 mg/dL (1.6-2.6); Potassium 3.5 mmol/L (3.5-5.1)
[2016-04-24 06:17] LABS: INR 1.16 (0.9-1.15)
[2016-04-24 07:23] LABS: Anisocytosis Slight; Platelet Estimate Adequate
[2016-04-24 08:23] VITALS: BP 126/80
[2016-04-24] MEDS: AMIODARONE HCL 200 MG TAB PO SCH (09:35)
[2016-04-24] MEDS: ASPirin 81 mg TAB PO SCH (09:35)
[2016-04-24] MEDS: PANTOPRAZOLE 40 MG TAB PO SCH (09:35)
[2016-04-24] MEDS: SODIUM CHLOR 0.9% PF (SALINE LOCK) 10ML VIAL IV SCH ×2 (09:36→21:41)
[2016-04-24] MEDS: CARVEDILOL 3.125 MG TAB PO SCH ×2 (09:36→21:33)
[2016-04-24 12:50] VITALS: BP 119/62
[2016-04-24 16:41] VITALS: BP 143/85
[2016-04-24] MEDS: LORazepam 2MG/ML-1ML VIAL IV PRN (17:37)
[2016-04-24] MEDS: HYDROcodone-ACET 5/325MG TAB PO PRN (21:31)
[2016-04-24] MEDS: ATORVASTATIN 20 MG TAB PO SCH (21:32)
[2016-04-24 21:37] VITALS: BP 109/67
[2016-04-25] MEDS: LORazepam 2MG/ML-1ML VIAL IV PRN (02:09)
[2016-04-25 04:32] VITALS: BP 114/65
[2016-04-25 05:33] LABS: Prothrombin Time 12.1 sec (9.37-12.3)
[2016-04-25 05:35] LABS: Magnesium 2.2 mg/dL (1.6-2.6); Potassium 3.6 mmol/L (3.5-5.1)
[2016-04-25 05:37] LABS: INR 1.17 (0.9-1.15)
[2016-04-25 05:38] LABS: BUN/Creatinine Ratio 12.3
[2016-04-25 05:43] LABS: Basophils # (auto) 0 uL; Basophils % (auto) 0.4 % (0.0-2.0); Eosinophils # (auto) 0.3 uL; Eosinophils % (auto) 5.3 % (0.0-7.0); Hematocrit 31.4 % (36.0-46.0); Hemoglobin 10.2 g/dL (12.2-16.2); Lymphocytes # (auto) 1.4 uL; Lymphocytes % (auto) 28.7 % (10.0-50.0); Mean Corpuscular Hemoglobin 30.4 pg (28.0-32.0); Mean Corpuscular Hgb Conc. 32.5 g/dL (32.0-36.0); Mean Corpuscular Volume 93.3 fL (80.0-100.0); Mean Platelet Volume 8.8 fL (7.4-10.4); Monocytes # (auto) 0.7 uL; Monocytes % (auto) 14.9 % (0.0-12.0); Neutrophils # (auto) 2.4 uL; Neutrophils % (auto) 50.7 % (37.0-80.0); Platelet Count (auto) 137 10^3/uL (140-450); Red Cell Distribution Width 13.7 % (11.6-16.0); White Blood Cell 4.8 10^3/uL (4.4-10.8)
[2016-04-25 07:55] LABS: Platelet Estimate Adequate; RBC Morphology Normal
[2016-04-25 09:00] VITALS: BP 121/89
[2016-04-25] MEDS: PANTOPRAZOLE 40 MG TAB PO SCH (09:18)
[2016-04-25] MEDS: ASPirin 81 mg TAB PO SCH (09:18)
[2016-04-25] MEDS: AMIODARONE HCL 200 MG TAB PO SCH (09:18)
[2016-04-25] MEDS: CARVEDILOL 3.125 MG TAB PO SCH ×2 (09:19→22:34)
[2016-04-25] MEDS: SODIUM CHLOR 0.9% PF (SALINE LOCK) 10ML VIAL IV SCH ×2 (09:19→22:35)
[2016-04-25] MEDS ORDERED: LORazepam 2MG/ML-1ML VIAL IV PRN (11:30)
[2016-04-25] MEDS ORDERED: THROAT LOZENGES(CEPASTAT) MT PRN (11:30)
[2016-04-25 12:24] VITALS: BP 140/78
[2016-04-25 16:47] VITALS: BP 118/72
[2016-04-25 22:00] VITALS: BP 118/69
[2016-04-25] MEDS ORDERED: ATORVASTATIN 20 MG TAB PO SCH (22:00)
[2016-04-26 05:06] VITALS: BP 122/61
[2016-04-26 08:51] VITALS: BP 121/74
[2016-04-26] MEDS ORDERED: ASPirin 81 mg TAB PO SCH (10:00)
[2016-04-26] MEDS ORDERED: PANTOPRAZOLE 40 MG TAB PO SCH (10:00)
[2016-04-26] MEDS: CARVEDILOL 3.125 MG TAB PO SCH (10:14)
[2016-04-26] MEDS: AMIODARONE HCL 200 MG TAB PO SCH (10:14)
[2016-04-26] MEDS: SODIUM CHLOR 0.9% PF (SALINE LOCK) 10ML VIAL IV SCH (10:15)
[2016-04-26 12:26] VITALS: BP 126/76
[2016-04-26 14:18] VITALS: BP 126/76
== END 2016-04-26 15:10 | disposition home or self-care (01) | DRG 3 ==
LOC: EDBD 10:38 → ER 10:42 → OVERFLOW 10:43 → ICU WEST 17:35 → DOU IN ICU 04-10 01:20 → TELE-EAST 04-13 14:20
PROVIDERS: ADMIT Internal Medicine; ATTEND Internal Medicine
PROC: 5A12012 Performance of Cardiac Output, Single, Manual (ICD-10-PCS; 2016-03-29)
PROC: 02HV33Z Insertion of Infusion Device into Superior Vena Cava, Percutaneous Approach (ICD-10-PCS; 2016-03-29)
PROC: B41J1ZZ Fluoroscopy of Other Lower Arteries using Low Osmolar Contrast (ICD-10-PCS; 2016-03-30)
PROC: 4A023N7 Measurement of Cardiac Sampling and Pressure, Left Heart, Percutaneous Approach (ICD-10-PCS; 2016-03-30)
PROC: B2111ZZ Fluoroscopy of Multiple Coronary Arteries using Low Osmolar Contrast (ICD-10-PCS; 2016-03-30)
PROC: B2151ZZ Fluoroscopy of Left Heart using Low Osmolar Contrast (ICD-10-PCS; 2016-03-30)
PROC: 3E0102A Introduction of Anti-Infective Envelope into Subcutaneous Tissue, Open Approach (ICD-10-PCS; 2016-03-30)
PROC: 5A1955Z Respiratory Ventilation, Greater than 96 Consecutive Hours (ICD-10-PCS; 2016-04-02)
PROC: 0BH17EZ Insertion of Endotracheal Airway into Trachea, Via Natural or Artificial Opening (ICD-10-PCS; 2016-04-02)
PROC: 0B110F4 Bypass Trachea to Cutaneous with Tracheostomy Device, Open Approach (ICD-10-PCS; principal; 2016-04-06 12:45)
PROC: 0JH608Z Insertion of Defibrillator Generator into Chest Subcutaneous Tissue and Fascia, Open Approach (ICD-10-PCS; 2016-04-13)
PROC: 02HL3KZ Insertion of Defibrillator Lead into Left Ventricle, Percutaneous Approach (ICD-10-PCS; 2016-04-13)
DX: I21.4 Non-ST elevation (NSTEMI) myocardial infarction (principal); J96.01 Acute respiratory failure with hypoxia; I49.01 Ventricular fibrillation; G92 Toxic encephalopathy; J15.211 Pneumonia due to Methicillin susceptible Staphylococcus aureus; I46.9 Cardiac arrest, cause unspecified; E44.0 Moderate protein-calorie malnutrition; E87.0 Hyperosmolality and hypernatremia; G72.81 Critical illness myopathy; G93.1 Anoxic brain damage, not elsewhere classified; S27.0XXA Traumatic pneumothorax, initial encounter; S22.32XA Fracture of one rib, left side, initial encounter for closed fracture; T79.7XXA Traumatic subcutaneous emphysema, initial encounter; I42.9 Cardiomyopathy, unspecified; I47.2 Ventricular tachycardia; S27.892A Contusion of other specified intrathoracic organs, initial encounter; Z99.11 Dependence on respirator [ventilator] status; I45.81 Long QT syndrome; E87.6 Hypokalemia; E66.01 Morbid (severe) obesity due to excess calories; E78.5 Hyperlipidemia, unspecified; E11.9 Type 2 diabetes mellitus without complications; I10 Essential (primary) hypertension; S00.03XA Contusion of scalp, initial encounter; W19.XXXA Unspecified fall, initial encounter; Z98.84 Bariatric surgery status; Z82.49 Family history of ischemic heart disease and other diseases of the circulatory system; Z79.82 Long term (current) use of aspirin; Y93.89 Activity, other specified; Y92.59 Other trade areas as the place of occurrence of the external cause
CPT/HCPCS: 31500; 32551; 36415; 36569; 36600; 51702; 70450; 71010; 71250; 71275; 74176; 80048; 80053; 80061; 80202; 81001; 82550; 82805; 82962; 83036; 83605; 83735; 83880; 84100; 84132; 84443; 84484; 85007; 85014; 85018; 85025; 85027; 85049; 85379; 85610; 85652; 85730; 86141; 87040; 87070; 87077; 87081; 87086; 87186; 87205; 92526; 92610; 92950; 93005; 93306; 93970; 94002; 94003; 94640; 94660; 95819; 96365; 96366; 96368; 97001; 99144; 99152; 99291; A4565; C9113; G0434; J0330; J0690; J0696; J1100; J2250; J2405; J2704; J3010; J3480; J3490; J7060; Q9967

== ENCOUNTER → 2016-06-21 | Outpatient (CLI) | payer BC ==
[2016-06-21 10:25] LABS: Basophils # (auto) 0 uL; Basophils % (auto) 0.7 % (0.0-2.0); Eosinophils # (auto) 0.1 uL; Eosinophils % (auto) 2.5 % (0.0-7.0); Hematocrit 37.6 % (36.0-46.0); Hemoglobin 12.4 g/dL (12.2-16.2); Lymphocytes # (auto) 1.4 uL; Mean Corpuscular Hemoglobin 30.8 pg (28.0-32.0); Mean Corpuscular Hgb Conc. 32.8 g/dL (32.0-36.0); Mean Corpuscular Volume 93.7 fL (80.0-100.0); Mean Platelet Volume 9.5 fL (7.4-10.4); Monocytes # (auto) 0.3 uL; Monocytes % (auto) 9.4 % (0.0-12.0); Neutrophils # (auto) 1.1 uL; Neutrophils % (auto) 38.4 % (37.0-80.0); Platelet Count (auto) 182 10^3/uL (140-450); Red Cell Distribution Width 16.1 % (11.6-16.0); White Blood Cell 2.9 10^3/uL (4.4-10.8)
[2016-06-21 13:30] LABS: BUN/Creatinine Ratio 12.2; Bilirubin, Total 0.4 mg/dL (0.2-1.0); Calcium 8.3 mg/dL (8.5-10.1); Potassium 3.1 mmol/L (3.5-5.1); Total Protein 7.1 g/dL (6.4-8.2)
== END | disposition home or self-care (01) ==
LOC: LAB 09:16
PROVIDERS: ATTEND Internal Medicine
DX: D64.9 Anemia, unspecified (principal); E03.9 Hypothyroidism, unspecified
CPT/HCPCS: 36415; 80053; 80061; 82306; 82607; 83540; 84439; 84443; 85025

== ENCOUNTER 2016-08-14 15:47 | Inpatient (IN) | payer BC ==
[~2016-08-14] VITALS: Ht 165.1 cm; Wt 107.3 kg
[2016-08-14] MEDS ORDERED: SODIUM CHLORIDE 0.9% 1,000 ML IV ONE (16:14)
[2016-08-14] MEDS ORDERED: ASPirin 81 mg TAB PO ONE (16:15)
[2016-08-14 16:36] LABS: Basophils # (auto) 0 uL; Basophils % (auto) 0.3 % (0.0-2.0); Eosinophils # (auto) 0 uL; Eosinophils % (auto) 0.7 % (0.0-7.0); Hemoglobin 13.6 g/dL (12.2-16.2); Lymphocytes # (auto) 1.4 uL; Lymphocytes % (auto) 23.3 % (10.0-50.0); Mean Corpuscular Hemoglobin 30.3 pg (28.0-32.0); Mean Corpuscular Hgb Conc. 32.3 g/dL (32.0-36.0); Mean Corpuscular Volume 93.5 fL (80.0-100.0); Mean Platelet Volume 9.2 fL (7.4-10.4); Monocytes # (auto) 0.7 uL; Monocytes % (auto) 11.5 % (0.0-12.0); Neutrophils # (auto) 3.8 uL; Neutrophils % (auto) 64.2 % (37.0-80.0); Platelet Count (auto) 229 10^3/uL (140-450); Red Cell Distribution Width 15.7 % (11.6-16.0)
[2016-08-14 16:53] LABS: INR 1.04 (0.9-1.15); Partial Thromboplastin Time 27.1 sec (22.64-33.71); Prothrombin Time 11.2 sec (9.37-12.3)
[2016-08-14 17:12] LABS: Albumin 3.4 g/dL (3.4-5.0); BUN/Creatinine Ratio 9.2; Bilirubin, Total 0.7 mg/dL (0.2-1.0); Calcium 8.4 mg/dL (8.5-10.1); Potassium 3.1 mmol/L (3.5-5.1); Total Protein 8.2 g/dL (6.4-8.2)
[2016-08-14 17:13] LABS: B-Type Natriuretic Peptide 75.86 pg/mL (0-100)
[2016-08-14 17:19] LABS: Temperature: 21.9 C (20.0-25.0)
[2016-08-14 17:30] LABS: Urine RBC None Seen /hpf (0 - 4)
[2016-08-14] MEDS ORDERED: AMIODARONE HCL 150 MG in D5W 5% 100 ML IV ONE (17:30)
[2016-08-14] MEDS ORDERED: LORazepam 2MG/ML-1ML VIAL IV ONE (17:30)
[2016-08-14] MEDS ORDERED: AMIODARONE HCL 900 MG in DEXTROSE 500 ML IV SCH (17:33)
[2016-08-14 17:50] LABS: Urine Bilirubin Negative (Negative); Urine Blood Negative /uL (Negative); Urine Ca Oxalate Crystal FEW (None Seen); Urine Color Yellow (Yellow); Urine Glucose Normal (Normal); Urine Hyaline Cast MOD /lpf (0 - 2); Urine Ketone Negative (Negative); Urine Mucus FEW (None Seen); Urine Nitrite Negative (Negative); Urine Squamous Epithelial Cell FEW /hpf (<5)
[2016-08-14] MEDS ORDERED: POTASSIUM CHL 10% (20 MEQ/15ML) ORAL SOLN PO ONE (18:00)
[2016-08-14] MEDS ORDERED: SODIUM CHLORIDE 0.9% 1,000 ML IV SCH (23:03)
[2016-08-14] MEDS ORDERED: HYDROcodone-ACET 5/325MG TAB PO PRN (23:15)
[2016-08-14] MEDS ORDERED: MORPHINE SULF INJ 2 MG/ML SYRINGE 1ML IV PRN ×2 (23:15)
[2016-08-14] MEDS ORDERED: TEMAZEPAM 15 MG CAP PO PRN (23:15)
[2016-08-14] MEDS ORDERED: ONDANSETRON HCL 4 MG/2 ML VIAL IV PRN (23:15)
[2016-08-14] MEDS ORDERED: NITROGLYCERIN 0.4 MG SL TAB SL PRN (23:15)
[2016-08-15 00:16] VITALS: BP 153/94
[2016-08-15 04:00] VITALS: BP 134/78
[2016-08-15 04:40] LABS: Basophils # (auto) 0 uL; Basophils % (auto) 0.3 % (0.0-2.0); Eosinophils # (auto) 0 uL; Eosinophils % (auto) 0.7 % (0.0-7.0); Hematocrit 36.4 % (36.0-46.0); Lymphocytes # (auto) 1.4 uL; Mean Corpuscular Hemoglobin 31.1 pg (28.0-32.0); Mean Corpuscular Hgb Conc. 33.1 g/dL (32.0-36.0); Mean Corpuscular Volume 94.1 fL (80.0-100.0); Mean Platelet Volume 9.7 fL (7.4-10.4); Monocytes # (auto) 0.7 uL; Monocytes % (auto) 11.9 % (0.0-12.0); Neutrophils # (auto) 3.8 uL; Neutrophils % (auto) 64.1 % (37.0-80.0); Platelet Count (auto) 192 10^3/uL (140-450); Red Cell Distribution Width 15.5 % (11.6-16.0); White Blood Cell 5.9 10^3/uL (4.4-10.8)
[2016-08-15 05:00] LABS: Albumin 2.9 g/dL (3.4-5.0); BUN/Creatinine Ratio 12.9; Bilirubin, Total 0.7 mg/dL (0.2-1.0); Calcium 7.7 mg/dL (8.5-10.1); Total Protein 6.9 g/dL (6.4-8.2)
[2016-08-15] MEDS ORDERED: POTASSIUM CHL 20 Meq TABLET PO ONE (06:00)
[2016-08-15] MEDS ORDERED: AMIODARONE HCL 900 MG in DEXTROSE 500 ML IV SCH (07:59)
[2016-08-15 08:00] VITALS: BP 132/94
[2016-08-15] MEDS ORDERED: CARV6.25 PO (08:36)
[2016-08-15] MEDS ORDERED: ATO40T PO (08:37)
[2016-08-15] MEDS ORDERED: MULTTAB61 PO (08:38)
[2016-08-15] MEDS ORDERED: CYAN1TAB14 PO (08:43)
[2016-08-15] MEDS: CARVEDILOL 3.125 MG TAB PO SCH ×2 (10:31→22:02)
[2016-08-15] MEDS: MULTIPLE VITAMIN TAB PO SCH (10:31)
[2016-08-15 12:00] VITALS: BP 141/87
[2016-08-15] MEDS ORDERED: MAGNESIUM OXIDE 400 MG TAB PO ONE (12:15)
[2016-08-15] MEDS ORDERED: ASPirin 81 mg TAB PO ONE (12:15)
[2016-08-15 16:00] VITALS: BP 132/77
[2016-08-15 20:00] VITALS: BP 137/75
[2016-08-15] MEDS: ATORVASTATIN 20 MG TAB PO SCH (21:58)
[2016-08-16] VITALS: BP 124/72
[2016-08-16 04:00] VITALS: BP 133/88
[2016-08-16 05:08] LABS: BUN/Creatinine Ratio 10.1; Magnesium 1.8 mg/dL (1.6-2.6); Potassium 3.3 mmol/L (3.5-5.1)
[2016-08-16 07:58] VITALS: BP 162/77
[2016-08-16] MEDS ORDERED: POTASSIUM CHL 20 Meq TABLET PO ONE (09:30)
[2016-08-16] MEDS: MAGNESIUM OXIDE 400 MG TAB PO SCH (09:47)
[2016-08-16] MEDS: MULTIPLE VITAMIN TAB PO SCH (09:48)
[2016-08-16] MEDS: ASPirin 81 mg TAB PO SCH (09:48)
[2016-08-16] MEDS: AMIODARONE HCL 200 MG TAB PO SCH ×2 (09:48→22:36)
[2016-08-16] MEDS: CARVEDILOL 3.125 MG TAB PO SCH ×2 (09:53→22:35)
[2016-08-16 11:52] VITALS: BP 139/82
[2016-08-16] MEDS: MAGNESIUM SULFATE 1GM/100ML 100 ML IV SCH ×2 (11:52→13:00)
[2016-08-16 16:00] VITALS: BP 142/92
[2016-08-16 20:00] VITALS: BP 140/82
[2016-08-16] MEDS: ATORVASTATIN 20 MG TAB PO SCH (22:36)
[2016-08-17] VITALS: BP 137/94
[2016-08-17 04:00] VITALS: BP 134/73
[2016-08-17 05:03] LABS: BUN/Creatinine Ratio 13.6; Calcium 8.1 mg/dL (8.5-10.1); Potassium 3.3 mmol/L (3.5-5.1)
[2016-08-17 08:00] VITALS: BP 145/92
[2016-08-17] MEDS: ASPirin 81 mg TAB PO SCH (10:01)
[2016-08-17] MEDS: MULTIPLE VITAMIN TAB PO SCH (10:02)
[2016-08-17] MEDS: MAGNESIUM OXIDE 400 MG TAB PO SCH (10:02)
[2016-08-17] MEDS: AMIODARONE HCL 200 MG TAB PO SCH (10:02)
[2016-08-17] MEDS: CARVEDILOL 3.125 MG TAB PO SCH (10:08)
[2016-08-17 12:00] VITALS: BP 131/89
[2016-08-17] MEDS ORDERED: POTASSIUM CHL 20 Meq TABLET PO ONE (13:00)
[2016-08-17] MEDS ORDERED: AMIO200T33 PO (13:18)
[2016-08-17] MEDS ORDERED: MAGN400T7 PO (13:20)
[2016-08-17] MEDS ORDERED: POTA20IN2 PO (13:20)
[2016-08-17 13:28] VITALS: BP 131/89
== END 2016-08-17 16:08 | disposition home or self-care (01) | DRG 310 ==
LOC: ER 15:47 → EDUNIT# 15:47 → EDBD 15:47 → TELE 15:48 → DOU IN ICU 23:39
PROVIDERS: ADMIT Emergency Medicine; ATTEND Internal Medicine
PROC: 4B02XTZ Measurement of Cardiac Defibrillator, External Approach (ICD-10-PCS; principal; 2016-08-15)
DX: I47.1 Supraventricular tachycardia (principal); E66.9 Obesity, unspecified; E78.5 Hyperlipidemia, unspecified; E87.6 Hypokalemia; I10 Essential (primary) hypertension; I47.2 Ventricular tachycardia; Z86.74 Personal history of sudden cardiac arrest; Z93.0 Tracheostomy status; Z95.810 Presence of automatic (implantable) cardiac defibrillator; Z86.79 Personal history of other diseases of the circulatory system; Z98.84 Bariatric surgery status; Z68.39 Body mass index [BMI] 39.0-39.9, adult
CPT/HCPCS: 36415; 71010; 80048; 80053; 81001; 81025; 83735; 83880; 84443; 84484; 85025; 85379; 85610; 85730; 87081; 94761; 96361; 96365; 96375; J7060

== ENCOUNTER → 2016-08-29 | Outpatient (CLI) | payer BC ==
[~2016-08-29] MED LIST changes: +AMIO200T33 PO; -AMIODARONE HCL 900 MG IV ONE; +ATO40T PO; +CARV6.25 PO; +CYAN1TAB14 PO; +MAGN400T7 PO; +MULTTAB61 PO; +POTA20IN2 PO
[2016-08-29 16:19] LABS: Calcium 8.6 mg/dL (8.5-10.1); Magnesium 2.2 mg/dL (1.6-2.6); Potassium 3.6 mmol/L (3.5-5.1)
== END | disposition home or self-care (01) ==
LOC: LAB 15:42
PROVIDERS: ATTEND Internal Medicine
DX: I49.9 Cardiac arrhythmia, unspecified (principal)
CPT/HCPCS: 36415; 82310; 83735; 84132

== ENCOUNTER → 2016-11-30 | Outpatient (CLI) | payer BC ==
[2016-11-30 13:02] LABS: CONDITION Y; Hematocrit 39.5 % (36.0-46.0); Hemoglobin 13.3 g/dL (12.2-16.2); Mean Corpuscular Hemoglobin 31.8 pg (28.0-32.0); Mean Corpuscular Hgb Conc. 33.6 g/dL (32.0-36.0); Mean Corpuscular Volume 94.6 fL (80.0-100.0); Mean Platelet Volume 9.9 fL (7.4-10.4); Platelet Count (auto) 191 10^3/uL (140-450); Red Cell Distribution Width 15.8 % (11.6-16.0); SUSPECT SEE PRINTOUT; White Blood Cell 4.1 10^3/uL (4.4-10.8)
[2016-11-30 13:16] LABS: Metamyelocytes % 0; Myelocytes % 0; Promyelocytes % 0; Reactive Lymphocytes 0
[2016-11-30 13:26] LABS: Albumin 3.4 g/dL (3.4-5.0); BUN/Creatinine Ratio 7.8; Bilirubin, Total 0.6 mg/dL (0.2-1.0); Calcium 8.5 mg/dL (8.5-10.1); Potassium 4.1 mmol/L (3.5-5.1); Total Protein 8.1 g/dL (6.4-8.2)
[2016-11-30 14:01] LABS: Giant Platelets Few; Platelet Clumps FEW; Platelet Estimate Adequate
== END | disposition home or self-care (01) ==
LOC: LAB 12:25
PROVIDERS: ATTEND Internal Medicine
DX: R22.2 Localized swelling, mass and lump, trunk (principal)
CPT/HCPCS: 36415; 80053; 83615; 85007; 85027

== ENCOUNTER → 2016-12-21 | Outpatient (CLI) | payer BC ==
[2016-12-21 07:50] LABS: Hematocrit 39.8 % (36.0-46.0); Hemoglobin 13.2 g/dL (12.2-16.2); Mean Corpuscular Hemoglobin 31.7 pg (28.0-32.0); Mean Corpuscular Hgb Conc. 33.2 g/dL (32.0-36.0); Mean Corpuscular Volume 95.6 fL (80.0-100.0); Mean Platelet Volume 8.5 fL (7.4-10.4); Platelet Count (auto) 145 10^3/uL (140-450); Red Cell Distribution Width 14.9 % (11.6-16.0); White Blood Cell 4.3 10^3/uL (4.4-10.8)
[2016-12-21 08:01] LABS: Metamyelocytes % 0; Myelocytes % 0; Promyelocytes % 0; Reactive Lymphocytes 0
[2016-12-21 09:20] LABS: Platelet Estimate Adequate
[2016-12-21 09:57] LABS: Albumin 3.2 g/dL (3.4-5.0); Alkaline Phosphatase 89 U/L (45-117); Anion Gap 6 (5-15); Aspartate Aminotransferase 20 U/L (15-37); BUN/Creatinine Ratio 16.3; Bilirubin, Direct 0.3 mg/dL (0-0.2); Bilirubin, Total 0.6 mg/dL (0.2-1.0); Blood Urea Nitrogen 13 mg/dL (7-18); Calcium 8.4 mg/dL (8.5-10.1); Carbon Dioxide 26 mmol/L (21-32); Chloride 111 mmol/L (98-107); Cholesterol < 50 mg/dL (< 200); GFR African American 97 mL/min; GFR Non-African American 80 mL/min; Glucose 80 mg/dL (74-106); HDL Cholesterol 24 mg/dL (40-59); LDL Cholesterol 32 mg/dL (< 100); Potassium 3.5 mmol/L (3.5-5.1); Sodium 143 mmol/L (136-145); Total Protein 7.7 g/dL (6.4-8.2); Triglycerides 40 mg/dL (< 150)
[2016-12-21 10:46] LABS: Ovalocytes FEW
[2016-12-21 10:47] LABS: Burr Cells FEW
== END | disposition home or self-care (01) ==
LOC: LAB 07:31
PROVIDERS: ATTEND Specialist
DX: E11.9 Type 2 diabetes mellitus without complications (principal); E03.9 Hypothyroidism, unspecified; E55.9 Vitamin D deficiency, unspecified
CPT/HCPCS: 36415; 80048; 80061; 80076; 82306; 83036; 84443; 85007; 85027

== ENCOUNTER → 2016-12-28 | Outpatient (CLI) | payer BC | END | disposition home or self-care (01) | LOC: XY 08:05 | PROVIDERS: ATTEND Internal Medicine | DX: R22.2 Localized swelling, mass and lump, trunk (principal); I11.0 Hypertensive heart disease with heart failure; I50.9 Heart failure, unspecified | CPT/HCPCS: 78306; A9503 ==

== ENCOUNTER → 2017-01-03 | Outpatient (CLI) | payer BC ==
[2017-01-03 14:52] LABS: Hematocrit 40.3 % (36.0-46.0); Hemoglobin 13.1 g/dL (12.2-16.2); Mean Corpuscular Hemoglobin 31.9 pg (28.0-32.0); Mean Corpuscular Hgb Conc. 32.4 g/dL (32.0-36.0); Mean Corpuscular Volume 98.3 fL (80.0-100.0); Platelet Count (auto) 140 10^3/uL (140-450); Red Cell Distribution Width 15.7 % (11.8-14.3); White Blood Cell 4.8 10^3/uL (4.4-10.8)
[2017-01-03 15:25] LABS: Albumin 3.2 g/dL (3.4-5.0); Bilirubin, Total 0.8 mg/dL (0.2-1.0); Calcium 8.2 mg/dL (8.5-10.1); Potassium 3.9 mmol/L (3.5-5.1); Total Protein 7.9 g/dL (6.4-8.2)
[2017-01-03 15:28] LABS: INR 1.1 (0.9-1.15); Partial Thromboplastin Time 28.9 sec (22.64-33.71)
[2017-01-03 15:36] LABS: Metamyelocytes % 0; Myelocytes % 0; Promyelocytes % 0; Reactive Lymphocytes 0
[2017-01-03 17:47] LABS: Burr Cells FEW; Ovalocytes FEW; Platelet Estimate Adequate
== END | disposition home or self-care (01) ==
LOC: LAB 14:23
PROVIDERS: ATTEND Internal Medicine
DX: R22.2 Localized swelling, mass and lump, trunk (principal)
CPT/HCPCS: 36415; 80053; 85007; 85027; 85610; 85730

== ENCOUNTER → 2017-01-04 | Outpatient (CLI) | payer BC ==
[~2017-01-04] MED LIST changes: +MIDAZOLAM HCL 1MG/1ML-2 ML VIAL ONE; +fentaNYL CITRATE 100 MCG/2 ML VL ONE
== END | disposition home or self-care (01) ==
LOC: CT 10:01
PROVIDERS: ATTEND Internal Medicine
DX: R22.2 Localized swelling, mass and lump, trunk (principal)
CPT/HCPCS: 10022; 77012; J2250; J3010

== ENCOUNTER → 2017-03-01 | Outpatient (CLI) | payer BC ==
[~2017-03-01] MED LIST changes: -MIDAZOLAM HCL 1MG/1ML-2 ML VIAL ONE; -fentaNYL CITRATE 100 MCG/2 ML VL ONE
[2017-03-01 09:49] LABS: Hematocrit 38.6 % (36.0-46.0); Hemoglobin 12.9 g/dL (12.2-16.2); Mean Corpuscular Hgb Conc. 33.3 g/dL (32.0-36.0); Mean Platelet Volume 9.2 fL (6.9-10.8); Platelet Count (auto) 146 10^3/uL (140-450); Red Cell Distribution Width 14.9 % (11.8-14.3); White Blood Cell 3.7 10^3/uL (4.4-10.8)
[2017-03-01 10:03] LABS: Metamyelocytes % 0; Myelocytes % 0; Promyelocytes % 0; Reactive Lymphocytes 0
[2017-03-01 10:07] LABS: Albumin 3.2 g/dL (3.4-5.0); Bilirubin, Direct 0.2 mg/dL (0-0.2); Bilirubin, Total 0.6 mg/dL (0.2-1.0); Total Protein 7.8 g/dL (6.4-8.2)
[2017-03-01 10:12] LABS: Albumin 3.1 g/dL (3.4-5.0); BUN/Creatinine Ratio 16.5; Bilirubin, Total 0.5 mg/dL (0.2-1.0); Calcium 7.9 mg/dL (8.5-10.1); Potassium 3.3 mmol/L (3.5-5.1); Total Protein 7.8 g/dL (6.4-8.2)
[2017-03-01 11:43] LABS: Ovalocytes FEW; Platelet Estimate Adequate
[2017-03-01 11:44] LABS: Burr Cells FEW
== END | disposition home or self-care (01) ==
LOC: LAB 09:06
PROVIDERS: ATTEND Internal Medicine
DX: C90.01 Multiple myeloma in remission (principal); E78.00 Pure hypercholesterolemia, unspecified; R94.5 Abnormal results of liver function studies
CPT/HCPCS: 36415; 80053; 80061; 80076; 82232; 82784; 83615; 83883; 85007; 85027; 85652; 86334; 86335

== ENCOUNTER → 2017-03-07 | Outpatient (CLI) | payer BC ==
[~2017-03-07] MED LIST changes: +ASPI81CH43 PO; +DEXA4TAB PO; +HYDR-4683 PO; +PANT40TA2 PO; +SPIR25TA89 PO
== END | disposition home or self-care (01) ==
LOC: LAB 15:00
PROVIDERS: ATTEND Internal Medicine
DX: C90.00 Multiple myeloma not having achieved remission (principal); D75.89 Other specified diseases of blood and blood-forming organs
CPT/HCPCS: 85097; 88360; 88361

== ENCOUNTER → 2017-03-16 | Outpatient (CLI) | payer BC ==
[~2017-03-16] MED LIST changes: -ASPI81CH43 PO; -DEXA4TAB PO; -HYDR-4683 PO; -PANT40TA2 PO; -SPIR25TA89 PO
== END | disposition home or self-care (01) ==
LOC: LAB 12:07
PROVIDERS: ATTEND Internal Medicine
DX: I10 Essential (primary) hypertension (principal); E87.6 Hypokalemia
CPT/HCPCS: 36415; 84132

== ENCOUNTER → 2017-04-05 | Outpatient (CLI) | payer BC ==
[2017-04-05 11:36] LABS: Hematocrit 38.2 % (36.0-46.0); Hemoglobin 12.7 g/dL (12.2-16.2); Mean Corpuscular Hemoglobin 31.8 pg (28.0-32.0); Mean Corpuscular Hgb Conc. 33.2 g/dL (32.0-36.0); Mean Corpuscular Volume 95.7 fL (80.0-100.0); Mean Platelet Volume 9.5 fL (6.9-10.8); Platelet Count (auto) 108 10^3/uL (140-450); Red Cell Distribution Width 15.1 % (11.8-14.3); White Blood Cell 4.4 10^3/uL (4.4-10.8)
[2017-04-05 11:40] LABS: Metamyelocytes % 0; Myelocytes % 0; Promyelocytes % 0; Reactive Lymphocytes 0
[2017-04-05 12:01] LABS: Albumin 2.8 g/dL (3.4-5.0); BUN/Creatinine Ratio 11.3; Bilirubin, Total 0.7 mg/dL (0.2-1.0); Calcium 7.1 mg/dL (8.5-10.1); Total Protein 7.3 g/dL (6.4-8.2)
[2017-04-05 12:10] LABS: Potassium 2.9 mmol/L (3.5-5.1)
[2017-04-05 14:55] LABS: Burr Cells FEW
[2017-04-05 14:56] LABS: Ovalocytes FEW
[2017-04-05 15:02] LABS: Large Platelets FEW; Platelet Clumps FEW
[2017-04-05 15:03] LABS: Platelet Estimate Decrea
== END | disposition home or self-care (01) ==
LOC: LAB 10:39
PROVIDERS: ATTEND Internal Medicine
DX: C90.00 Multiple myeloma not having achieved remission (principal)
CPT/HCPCS: 36415; 80053; 83615; 85007; 85027

== ENCOUNTER → 2017-04-13 | Outpatient (CLI) | payer BC ==
[~2017-04-13] MED LIST changes: +ASPI81CH43 PO; +DEXA4TAB PO; +HYDR-4683 PO; +PANT40TA2 PO; +SPIR25TA89 PO
[2017-04-13 13:14] LABS: Albumin 2.7 g/dL (3.4-5.0); BUN/Creatinine Ratio 10.8; Calcium 7.6 mg/dL (8.5-10.1); Potassium 3.3 mmol/L (3.5-5.1)
[2017-04-13 13:17] LABS: Bilirubin, Total 0.6 mg/dL (0.2-1.0)
== END | disposition home or self-care (01) ==
LOC: LAB 12:14
PROVIDERS: ATTEND Internal Medicine
DX: C90.00 Multiple myeloma not having achieved remission (principal)
CPT/HCPCS: 36415; 80053

== ENCOUNTER → 2017-04-25 | Outpatient (CLI) | payer BC ==
[2017-04-25 14:26] LABS: Basophils # (auto) 0 uL; Basophils % (auto) 0.4 % (0.0-2.0); Eosinophils # (auto) 0 uL; Eosinophils % (auto) 1.4 % (0.0-7.0); Hemoglobin 13.1 g/dL (12.2-16.2); Lymphocytes # (auto) 1.4 uL; Lymphocytes % (auto) 38.8 % (10.0-50.0); Mean Corpuscular Hemoglobin 31.8 pg (28.0-32.0); Mean Corpuscular Hgb Conc. 32.9 g/dL (32.0-36.0); Mean Corpuscular Volume 96.6 fL (80.0-100.0); Monocytes # (auto) 0.5 uL; Monocytes % (auto) 13.1 % (0.0-12.0); Neutrophils # (auto) 1.6 uL; Neutrophils % (auto) 46.3 % (37.0-80.0); Nucleated Red Blood Cells % 0.2 %; Platelet Count (auto) 222 10^3/uL (140-450); Red Blood Cells 4.14 10^6/uL (4.0-5.20); Red Cell Distribution Width 14.9 % (11.8-14.3); White Blood Cell 3.6 10^3/uL (4.4-10.8)
[2017-04-25 14:49] LABS: Albumin 3.1 g/dL (3.4-5.0); Bilirubin, Total 0.6 mg/dL (0.2-1.0); Calcium 7.8 mg/dL (8.5-10.1); Potassium 3.7 mmol/L (3.5-5.1); Total Protein 7.2 g/dL (6.4-8.2)
== END | disposition home or self-care (01) ==
LOC: LAB 14:10
PROVIDERS: ATTEND Internal Medicine
DX: C90.00 Multiple myeloma not having achieved remission (principal)
CPT/HCPCS: 36415; 80053; 83615; 85025

== ENCOUNTER → 2017-04-27 | Outpatient (CLI) | payer BC | END | disposition home or self-care (01) | LOC: LAB 10:23 | PROVIDERS: ATTEND Internal Medicine | DX: C90.00 Multiple myeloma not having achieved remission (principal) | CPT/HCPCS: 36415; 82232; 82784; 83883 ==

== ENCOUNTER → 2017-05-11 | Outpatient (CLI) | payer BC ==
[2017-05-11 13:40] LABS: BUN/Creatinine Ratio 8.5; Potassium 3.7 mmol/L (3.5-5.1)
== END | disposition home or self-care (01) ==
LOC: LAB 11:11
PROVIDERS: ATTEND Internal Medicine
DX: I10 Essential (primary) hypertension (principal); E87.6 Hypokalemia; D69.6 Thrombocytopenia, unspecified; Z98.84 Bariatric surgery status
CPT/HCPCS: 36415; 80048

== ENCOUNTER 2017-05-21 08:00 | Inpatient (IN) | payer BC ==
[~2017-05-21] VITALS: Ht 165.1 cm; Wt 88.5 kg
[2017-05-21] VITALS (9 sets, daily range): BP systolic 99–136; BP diastolic 48–75
[~2017-05-21 08:00] MED LIST changes: -ASPI81CH43 PO; -DEXA4TAB PO; -HYDR-4683 PO; -PANT40TA2 PO; -SPIR25TA89 PO
[2017-05-21] MEDS ORDERED: SODIUM CHLORIDE 0.9% 1,000 ML IV ONE (08:32)
[2017-05-21] MEDS: ASPirin 81 mg TAB PO ONE ×2 (08:42→08:48)
[2017-05-21 08:58] LABS: Hematocrit 42.6 % (36.0-46.0); Hemoglobin 13.8 g/dL (12.2-16.2); Mean Corpuscular Hemoglobin 31.7 pg (28.0-32.0); Mean Corpuscular Hgb Conc. 32.3 g/dL (32.0-36.0); Platelet Count (auto) 143 10^3/uL (140-450); Red Blood Cells 4.35 10^6/uL (4.0-5.20); Red Cell Distribution Width 15.6 % (11.8-14.3); White Blood Cell 4.7 10^3/uL (4.4-10.8)
[2017-05-21 09:06] LABS: Band Neutrophils % (manual) 0; Basophils % (manual) 0 (0.0-2.0); Blast Cells 0; Metamyelocytes % 0; Myelocytes % 0; Promyelocytes % 0; Reactive Lymphocytes 0
[2017-05-21 09:19] LABS: INR 1.04 (0.9-1.15); Partial Thromboplastin Time 26.7 sec (22.64-33.71); Prothrombin Time 11.3 sec (9.37-12.3)
[2017-05-21] MEDS ORDERED: SPIR25TA89 PO (09:19)
[2017-05-21] MEDS ORDERED: PANT40TA2 PO (09:19)
[2017-05-21] MEDS ORDERED: DEXA4TAB PO (09:19)
[2017-05-21] MEDS ORDERED: HYDR-4683 PO (09:19)
[2017-05-21] MEDS ORDERED: ASPI81CH43 PO (09:19)
[2017-05-21 09:41] LABS: Albumin 2.7 g/dL (3.4-5.0); BUN/Creatinine Ratio 11.2; Bilirubin, Total 0.8 mg/dL (0.2-1.0); Calcium 7.6 mg/dL (8.5-10.1); Magnesium 2.4 mg/dL (1.6-2.6); Total Protein 6.4 g/dL (6.4-8.2)
[2017-05-21 10:26] LABS: Eosinophils % (manual) 1 (0-7); Lymphocytes % (manual) 16 (10.0-50.0); Monocytes % (manual) 22 (0-12)
[2017-05-21] MEDS ORDERED: LIDOCAINE 50MG/5ML INJ 5ML SYRINGE IV ONE (11:45)
[2017-05-21] MEDS ORDERED: AMIODARONE HCL 150 MG in D5W 5% 100 ML IV ONE (11:45)
[2017-05-21] MEDS ORDERED: AMIODARONE HCL 900 MG in DEXTROSE 500 ML IV SCH ×2 (11:49→17:49)
[2017-05-21] MEDS ORDERED: IOHEXOL 350 MG/ML 100ML IJ ONE (11:53)
[2017-05-21] MEDS ORDERED: DEXAMETHASONE 4 MG TAB PO SCH (14:15)
[2017-05-21] MEDS ORDERED: NITROGLYCERIN 0.4 MG SL TAB SL PRN (14:15)
[2017-05-21] MEDS ORDERED: PROMETHAZINE HCL 25 MG/ML 1ML IV PRN (14:15)
[2017-05-21] MEDS ORDERED: LACTULOSE 20Gm/30ML SOLN PO PRN (14:15)
[2017-05-21] MEDS ORDERED: MORPHINE SULFATE 4 MG/ML SYR/VIAL IV PRN ×2 (14:15)
[2017-05-21 14:28] LABS: Urine Bacteria NONE SEEN /hpf (None Seen); Urine Blood Negative /uL (Negative); Urine Mucus FEW (None Seen); Urine WBC 1 /hpf (0 - 5)
[2017-05-21 14:54] LABS: Amylase 348 U/L (25-115); Lipase 1366 U/L (73-393)
[2017-05-21] MEDS: ENOXAPARIN SOD 80 MG/0.8ML SYRINGE SC SCH (17:23)
[2017-05-21] MEDS: AMIODARONE HCL 900 MG in DEXTROSE 500 ML IV SCH (19:30)
[2017-05-21] MEDS ORDERED: ENOXAPARIN SOD 80 MG/0.8ML SYRINGE SC SCH (22:00)
[2017-05-21] MEDS ORDERED: CARVEDILOL 3.125 MG TAB PO SCH (22:00)
[2017-05-22] VITALS (78 sets, daily range): BP systolic 91–143; BP diastolic 43–112
[2017-05-22] MEDS: METOPROLOL TARTRATE 1MG/1ML-5ML VIAL IV PRN ×2 (00:21→11:20)
[2017-05-22] MEDS ORDERED: NOREPINEPHRINE 8 MG/250ML KIT 250 ML IV ONE (03:50)
[2017-05-22 04:03] LABS: Hemoglobin 12.5 g/dL (12.2-16.2); Mean Corpuscular Hemoglobin 31.6 pg (28.0-32.0); Mean Corpuscular Hgb Conc. 32.8 g/dL (32.0-36.0); Mean Corpuscular Volume 96.3 fL (80.0-100.0); Platelet Count (auto) 106 10^3/uL (140-450); Red Blood Cells 3.94 10^6/uL (4.0-5.20); Red Cell Distribution Width 15.6 % (11.8-14.3); White Blood Cell 3.4 10^3/uL (4.4-10.8)
[2017-05-22 04:11] LABS: Blast Cells 0; Metamyelocytes % 0; Myelocytes % 0; Promyelocytes % 0; Reactive Lymphocytes 0
[2017-05-22 04:18] LABS: Potassium 3.4 mmol/L (3.5-5.1)
[2017-05-22 04:22] LABS: Albumin 2.4 g/dL (3.4-5.0); BUN/Creatinine Ratio 13.3; Calcium 7.3 mg/dL (8.5-10.1)
[2017-05-22 04:24] LABS: Bilirubin, Total 0.6 mg/dL (0.2-1.0); Total Protein 5.3 g/dL (6.4-8.2)
[2017-05-22] MEDS: ENOXAPARIN SOD 80 MG/0.8ML SYRINGE SC SCH (04:55)
[2017-05-22 05:13] LABS: Band Neutrophils % (manual) 2; Basophils % (manual) 1 (0.0-2.0); Eosinophils % (manual) 4 (0-7); Lymphocytes % (manual) 23 (10.0-50.0); Monocytes % (manual) 26 (0-12)
[2017-05-22] MEDS ORDERED: METOPROLOL TARTRATE 1MG/1ML-5ML VIAL IV SCH (06:00)
[2017-05-22] MEDS ORDERED: POTASSIUM CHL 20 Meq TABLET PO ONE ×2 (06:15→13:45)
[2017-05-22] MEDS ORDERED: ENOXAPARIN SOD 40 MG/0.4 ML SYRINGE SC SCH (10:00)
[2017-05-22] MEDS ORDERED: MULTIPLE VITAMIN TAB PO SCH (10:00)
[2017-05-22] MEDS ORDERED: ENOXAPARIN SOD 80 MG/0.8ML SYRINGE SC SCH (10:00)
[2017-05-22] MEDS ORDERED: PANTOPRAZOLE 40 MG TAB PO SCH (10:00)
[2017-05-22] MEDS ORDERED: ASPirin 81 mg TAB PO SCH (10:00)
[2017-05-22] MEDS: CYANOCOBALAMIN 500 MCG TAB PO SCH (11:02)
[2017-05-22] MEDS: MEXILETINE HYDROCHLORIDE 150 MG CAP PO SCH ×2 (11:02→22:00)
[2017-05-22] MEDS: ASPirin 81 mg TAB PO SCH (11:03)
[2017-05-22] MEDS: CARVEDILOL 12.5 MG TAB PO SCH ×3 (11:03→23:15)
[2017-05-22] MEDS: MAGNESIUM OXIDE 400 MG TAB PO SCH (11:03)
[2017-05-22] MEDS: MULTIPLE VITAMIN TAB PO SCH (11:04)
[2017-05-22] MEDS: SPIRONOLACTONE 25 MG TAB PO SCH (11:05)
[2017-05-22] MEDS: PANTOPRAZOLE 40 MG TAB PO SCH (11:09)
[2017-05-22 13:26] LABS: Potassium 3.8 mmol/L (3.5-5.1)
[2017-05-22 13:29] LABS: Magnesium 2.4 mg/dL (1.6-2.6)
[2017-05-22] MEDS: AMIODARONE HCL 900 MG in DEXTROSE 500 ML IV SCH (19:00)
[2017-05-22] MEDS ORDERED: AMIODARONE HCL 200 MG TAB PO ONE (19:00)
[2017-05-23] VITALS (25 sets, daily range): BP systolic 90–134; BP diastolic 34–80
[2017-05-23 03:55] LABS: Hematocrit 37.4 % (36.0-46.0); Hemoglobin 12.1 g/dL (12.2-16.2); Mean Corpuscular Hemoglobin 31.5 pg (28.0-32.0); Mean Corpuscular Hgb Conc. 32.4 g/dL (32.0-36.0); Mean Corpuscular Volume 97.1 fL (80.0-100.0); Platelet Count (auto) 101 10^3/uL (140-450); Red Blood Cells 3.85 10^6/uL (4.0-5.20); Red Cell Distribution Width 15.3 % (11.8-14.3); White Blood Cell 2.9 10^3/uL (4.4-10.8)
[2017-05-23 04:11] LABS: Albumin 2.3 g/dL (3.4-5.0); Calcium 7.5 mg/dL (8.5-10.1); Potassium 3.7 mmol/L (3.5-5.1)
[2017-05-23 04:14] LABS: BUN/Creatinine Ratio 9.8
[2017-05-23 04:16] LABS: Bilirubin, Total 0.5 mg/dL (0.2-1.0); Total Protein 5.4 g/dL (6.4-8.2)
[2017-05-23 04:20] LABS: Basophils % (manual) 0 (0.0-2.0); Blast Cells 0; Metamyelocytes % 0; Myelocytes % 0; Promyelocytes % 0; Reactive Lymphocytes 0
[2017-05-23 05:25] LABS: Band Neutrophils % (manual) 2; Eosinophils % (manual) 4 (0-7); Lymphocytes % (manual) 27 (10.0-50.0); Monocytes % (manual) 13 (0-12)
[2017-05-23] MEDS ORDERED: HYDROmorphone HCL 2 MG/ML VL IV ONE (08:15)
[2017-05-23] MEDS ORDERED: MIDAZOLAM HCL 5 MG/ML-1ML VIAL IV ONE (08:15)
[2017-05-23] MEDS ORDERED: MIDAZOLAM HCL 5 MG/ML-1ML VIAL ONE (08:31)
[2017-05-23] MEDS ORDERED: fentaNYL CITRATE 100 MCG/2 ML VL ONE (08:32)
[2017-05-23] MEDS: AMIODARONE HCL 900 MG in DEXTROSE 500 ML IV SCH (09:30)
[2017-05-23] MEDS: METOPROLOL TARTRATE 50 MG TAB PO SCH ×2 (10:00→21:45)
[2017-05-23] MEDS ORDERED: AMIODARONE HCL 200 MG TAB PO SCH (10:00)
[2017-05-23] MEDS: CARVEDILOL 12.5 MG TAB PO SCH (10:00)
[2017-05-23] MEDS: MULTIPLE VITAMIN TAB PO SCH (11:18)
[2017-05-23] MEDS: PANTOPRAZOLE 40 MG TAB PO SCH (11:18)
[2017-05-23] MEDS: CYANOCOBALAMIN 500 MCG TAB PO SCH (11:18)
[2017-05-23] MEDS: ASPirin 81 mg TAB PO SCH (11:18)
[2017-05-23] MEDS: AMIODARONE HCL 200 MG TAB PO SCH ×2 (11:19→21:33)
[2017-05-23] MEDS: ENOXAPARIN SOD 30 MG/0.3 ML SYRINGE SC SCH (11:19)
[2017-05-23] MEDS: SPIRONOLACTONE 25 MG TAB PO SCH (11:19)
[2017-05-23] MEDS: MAGNESIUM OXIDE 400 MG TAB PO SCH (11:19)
[2017-05-23] MEDS: MEXILETINE HYDROCHLORIDE 150 MG CAP PO SCH ×2 (11:20→21:33)
[2017-05-23] MEDS ORDERED: POTASSIUM CHL 20 Meq TABLET PO ONE (12:45)
[2017-05-24] VITALS (24 sets, daily range): BP systolic 89–119; BP diastolic 36–81
[2017-05-24 04:17] LABS: Hemoglobin 12.7 g/dL (12.2-16.2); Mean Corpuscular Hemoglobin 31.6 pg (28.0-32.0); Mean Corpuscular Hgb Conc. 32.6 g/dL (32.0-36.0); Mean Corpuscular Volume 96.8 fL (80.0-100.0); Platelet Count (auto) 115 10^3/uL (140-450); Red Blood Cells 4.03 10^6/uL (4.0-5.20); Red Cell Distribution Width 15.4 % (11.8-14.3)
[2017-05-24 04:28] LABS: Albumin 2.4 g/dL (3.4-5.0); BUN/Creatinine Ratio 10.6; Bilirubin, Total 0.5 mg/dL (0.2-1.0); Calcium 7.5 mg/dL (8.5-10.1); Magnesium 2.5 mg/dL (1.6-2.6); Potassium 3.9 mmol/L (3.5-5.1); Total Protein 5.6 g/dL (6.4-8.2)
[2017-05-24 04:39] LABS: Blast Cells 0; Metamyelocytes % 0; Myelocytes % 0; Promyelocytes % 0; Reactive Lymphocytes 0
[2017-05-24 05:20] LABS: Band Neutrophils % (manual) 2; Basophils % (manual) 1 (0.0-2.0); Eosinophils % (manual) 2 (0-7); Lymphocytes % (manual) 31 (10.0-50.0); Monocytes % (manual) 16 (0-12)
[2017-05-24] MEDS: MEXILETINE HYDROCHLORIDE 150 MG CAP PO SCH ×3 (05:38→21:42)
[2017-05-24] MEDS ORDERED: METOPROLOL TARTRATE 25 MG TAB ONE (08:49)
[2017-05-24] MEDS: PANTOPRAZOLE 40 MG TAB PO SCH (09:06)
[2017-05-24] MEDS: MAGNESIUM OXIDE 400 MG TAB PO SCH (09:08)
[2017-05-24] MEDS: ASPirin 81 mg TAB PO SCH (09:09)
[2017-05-24] MEDS: AMIODARONE HCL 200 MG TAB PO SCH ×2 (09:09→21:41)
[2017-05-24] MEDS: CYANOCOBALAMIN 500 MCG TAB PO SCH (09:09)
[2017-05-24] MEDS: MULTIPLE VITAMIN TAB PO SCH (09:09)
[2017-05-24] MEDS: METOPROLOL TARTRATE 50 MG TAB PO SCH ×2 (09:10→22:34)
[2017-05-24] MEDS: CARVEDILOL 12.5 MG TAB PO SCH ×2 (09:11→21:42)
[2017-05-24] MEDS: ENOXAPARIN SOD 30 MG/0.3 ML SYRINGE SC SCH (09:11)
[2017-05-24] MEDS: SPIRONOLACTONE 25 MG TAB PO SCH (09:12)
[2017-05-24] MEDS: AMIODARONE HCL 900 MG in DEXTROSE 500 ML IV SCH (19:00)
[2017-05-25] VITALS (48 sets, daily range): BP systolic 94–144; BP diastolic 52–92
[2017-05-25] MEDS ORDERED: AMIODARONE HCL 900 MG IV ONE (00:16)
[2017-05-25] MEDS ORDERED: AMIODARONE HCL (50 MG/ ML) 3 ML VIAL IV ONE (00:16)
[2017-05-25] MEDS ORDERED: LIDOCAINE 4MG/ML IV SOLN 500 ML IV ONE ×2 (01:10→01:13)
[2017-05-25] MEDS ORDERED: AMIODARONE HCL 150 MG in D5W 5% 100 ML IV ONE (02:15)
[2017-05-25] MEDS ORDERED: AMIODARONE HCL 900 MG in DEXTROSE 500 ML IV SCH (02:22)
[2017-05-25] MEDS: LIDOCAINE 4MG/ML IV SOLN 500 ML IV SCH (02:30)
[2017-05-25] MEDS: PROCAINAMIDE IV SCH ×2 (02:45→19:25)
[2017-05-25] MEDS: SODIUM CHL 0.9% IV SCH ×2 (02:45→19:25)
[2017-05-25 03:24] LABS: Albumin 2.7 g/dL (3.4-5.0); BUN/Creatinine Ratio 13.7; Calcium 7.8 mg/dL (8.5-10.1); Magnesium 2.2 mg/dL (1.6-2.6); Potassium 3.6 mmol/L (3.5-5.1)
[2017-05-25 03:27] LABS: Bilirubin, Total 0.4 mg/dL (0.2-1.0); Total Protein 5.9 g/dL (6.4-8.2)
[2017-05-25] MEDS ORDERED: POTASSIUM CHL 20MEQ/100ML 100 ML IV ONE ×3 (04:25→10:47)
[2017-05-25] MEDS: MEXILETINE HYDROCHLORIDE 150 MG CAP PO SCH ×3 (06:58→22:00)
[2017-05-25] MEDS: ASPirin 81 mg TAB PO SCH (10:40)
[2017-05-25] MEDS: PANTOPRAZOLE 40 MG TAB PO SCH (10:40)
[2017-05-25] MEDS: SPIRONOLACTONE 25 MG TAB PO SCH (10:40)
[2017-05-25] MEDS: MULTIPLE VITAMIN TAB PO SCH (10:40)
[2017-05-25] MEDS: MAGNESIUM OXIDE 400 MG TAB PO SCH (10:41)
[2017-05-25] MEDS: AMIODARONE HCL 200 MG TAB PO SCH ×2 (10:42→22:00)
[2017-05-25] MEDS: CARVEDILOL 12.5 MG TAB PO SCH ×2 (10:42→22:18)
[2017-05-25] MEDS: ENOXAPARIN SOD 30 MG/0.3 ML SYRINGE SC SCH (10:43)
[2017-05-25] MEDS: CYANOCOBALAMIN 500 MCG TAB PO SCH (10:43)
[2017-05-25] MEDS: AMIODARONE HCL 900 MG in DEXTROSE 500 ML IV SCH (19:00)
[2017-05-25] MEDS: LORazepam 0.5 MG TAB PO PRN (21:02)
[2017-05-26] VITALS (49 sets, daily range): BP systolic 88–149; BP diastolic 44–104
[2017-05-26] MEDS ORDERED: LIDOCAINE HCL 100 MG/5ML (2%) SYRG INJ IV ONE (03:42)
[2017-05-26] MEDS: LIDOCAINE 4MG/ML IV SOLN 500 ML IV SCH (03:50)
[2017-05-26 04:05] LABS: BUN/Creatinine Ratio 9.7; Calcium 7.6 mg/dL (8.5-10.1); Magnesium 2.3 mg/dL (1.6-2.6); Potassium 3.9 mmol/L (3.5-5.1)
[2017-05-26] MEDS: MEXILETINE HYDROCHLORIDE 150 MG CAP PO SCH ×3 (06:08→22:11)
[2017-05-26] MEDS: MORPHINE SULFATE 4 MG/ML SYR/VIAL IV PRN (08:00)
[2017-05-26] MEDS ORDERED: POTASSIUM CHL 20MEQ/100ML 100 ML IV ONE (08:30)
[2017-05-26] MEDS: ENOXAPARIN SOD 30 MG/0.3 ML SYRINGE SC SCH (09:16)
[2017-05-26] MEDS: MULTIPLE VITAMIN TAB PO SCH (09:19)
[2017-05-26] MEDS: MAGNESIUM OXIDE 400 MG TAB PO SCH (09:19)
[2017-05-26] MEDS: ASPirin 81 mg TAB PO SCH (09:19)
[2017-05-26] MEDS: CYANOCOBALAMIN 500 MCG TAB PO SCH (09:19)
[2017-05-26] MEDS: CARVEDILOL 12.5 MG TAB PO SCH ×2 (09:21→22:10)
[2017-05-26] MEDS: AMIODARONE HCL 200 MG TAB PO SCH ×2 (09:21→22:10)
[2017-05-26] MEDS: SPIRONOLACTONE 25 MG TAB PO SCH (09:21)
[2017-05-26] MEDS: PANTOPRAZOLE 40 MG TAB PO SCH (09:28)
[2017-05-26 14:59] LABS: Magnesium 2.1 mg/dL (1.6-2.6); Potassium 4.5 mmol/L (3.5-5.1)
[2017-05-26] MEDS ORDERED: MAGNESIUM SULFATE 1GM/100ML 100 ML IV ONE (15:45)
[2017-05-26] MEDS: AMIODARONE HCL 900 MG in DEXTROSE 500 ML IV SCH (19:00)
[2017-05-26] MEDS: TEMAZEPAM 15 MG CAP PO PRN (22:11)
[2017-05-26 22:18] LABS: Magnesium 2.2 mg/dL (1.6-2.6); Potassium 4.1 mmol/L (3.5-5.1)
[2017-05-27] VITALS (91 sets, daily range): BP systolic 87–135; BP diastolic 30–87
[2017-05-27] MEDS: LIDOCAINE 4MG/ML IV SOLN 500 ML IV SCH (02:03)
[2017-05-27 04:50] LABS: Basophils # (auto) 0 uL; Basophils % (auto) 0.2 % (0.0-2.0); Eosinophils # (auto) 0.1 uL; Eosinophils % (auto) 1.2 % (0.0-7.0); Hematocrit 37.7 % (36.0-46.0); Hemoglobin 12.3 g/dL (12.2-16.2); Lymphocytes % (auto) 19.9 % (10.0-50.0); Mean Corpuscular Hemoglobin 31.4 pg (28.0-32.0); Mean Corpuscular Hgb Conc. 32.7 g/dL (32.0-36.0); Mean Corpuscular Volume 96.2 fL (80.0-100.0); Monocytes # (auto) 0.4 uL; Monocytes % (auto) 7.8 % (0.0-12.0); Neutrophils # (auto) 3.4 uL; Neutrophils % (auto) 70.9 % (37.0-80.0); Nucleated Red Blood Cells % 0.1 %; Platelet Count (auto) 115 10^3/uL (140-450); Red Blood Cells 3.92 10^6/uL (4.0-5.20); Red Cell Distribution Width 15.1 % (11.8-14.3); White Blood Cell 4.8 10^3/uL (4.4-10.8)
[2017-05-27 05:12] LABS: BUN/Creatinine Ratio 10.7; Calcium 7.3 mg/dL (8.5-10.1); Magnesium 2.5 mg/dL (1.6-2.6)
[2017-05-27] MEDS: POTASSIUM CHL 20MEQ/100ML 100 ML IV SCH ×2 (05:42→09:06)
[2017-05-27] MEDS: MEXILETINE HYDROCHLORIDE 150 MG CAP PO SCH ×3 (06:20→21:52)
[2017-05-27] MEDS: ENOXAPARIN SOD 30 MG/0.3 ML SYRINGE SC SCH (10:35)
[2017-05-27] MEDS: MAGNESIUM OXIDE 400 MG TAB PO SCH (10:36)
[2017-05-27] MEDS: MULTIPLE VITAMIN TAB PO SCH (10:36)
[2017-05-27] MEDS: AMIODARONE HCL 200 MG TAB PO SCH ×2 (10:36→21:52)
[2017-05-27] MEDS: CYANOCOBALAMIN 500 MCG TAB PO SCH (10:37)
[2017-05-27] MEDS: SPIRONOLACTONE 25 MG TAB PO SCH (10:37)
[2017-05-27] MEDS: PANTOPRAZOLE 40 MG TAB PO SCH (10:37)
[2017-05-27] MEDS: ASPirin 81 mg TAB PO SCH (10:37)
[2017-05-27] MEDS: CARVEDILOL 12.5 MG TAB PO SCH ×2 (10:38→21:52)
[2017-05-27 12:13] LABS: Magnesium 2.3 mg/dL (1.6-2.6); Potassium 4.5 mmol/L (3.5-5.1)
[2017-05-27] MEDS: AMIODARONE HCL 900 MG in DEXTROSE 500 ML IV SCH (18:21)
[2017-05-27] MEDS: TEMAZEPAM 15 MG CAP PO PRN (21:51)
[2017-05-27 22:38] LABS: Magnesium 2.4 mg/dL (1.6-2.6); Potassium 4.4 mmol/L (3.5-5.1)
[2017-05-28] VITALS (96 sets, daily range): BP systolic 89–154; BP diastolic 50–96
[2017-05-28] MEDS: LIDOCAINE 4MG/ML IV SOLN 500 ML IV SCH (02:50)
[2017-05-28] MEDS: LORazepam 0.5 MG TAB PO PRN ×2 (04:04→21:31)
[2017-05-28] MEDS: MEXILETINE HYDROCHLORIDE 150 MG CAP PO SCH ×3 (06:10→21:30)
[2017-05-28 10:12] LABS: Magnesium 2.1 mg/dL (1.6-2.6); Potassium 3.8 mmol/L (3.5-5.1)
[2017-05-28] MEDS: SPIRONOLACTONE 25 MG TAB PO SCH (10:16)
[2017-05-28] MEDS: ASPirin 81 mg TAB PO SCH (10:16)
[2017-05-28] MEDS: AMIODARONE HCL 200 MG TAB PO SCH ×2 (10:17→21:30)
[2017-05-28] MEDS: CARVEDILOL 12.5 MG TAB PO SCH ×2 (10:17→21:30)
[2017-05-28] MEDS: MULTIPLE VITAMIN TAB PO SCH (10:17)
[2017-05-28] MEDS: MAGNESIUM OXIDE 400 MG TAB PO SCH (10:17)
[2017-05-28] MEDS: ENOXAPARIN SOD 30 MG/0.3 ML SYRINGE SC SCH (10:18)
[2017-05-28] MEDS: CYANOCOBALAMIN 500 MCG TAB PO SCH (10:18)
[2017-05-28] MEDS: PANTOPRAZOLE 40 MG TAB PO SCH (10:18)
[2017-05-28] MEDS: POTASSIUM CHL 20MEQ/100ML 100 ML IV SCH ×2 (11:28→13:32)
[2017-05-28 17:04] LABS: Magnesium 2.4 mg/dL (1.6-2.6); Potassium 4.7 mmol/L (3.5-5.1)
[2017-05-28] MEDS: PRO-STAT 64 30ML PO SCH (18:16)
[2017-05-28] MEDS: AMIODARONE HCL 900 MG in DEXTROSE 500 ML IV SCH (19:00)
[2017-05-28] MEDS: MORPHINE SULFATE 4 MG/ML SYR/VIAL IV PRN (21:46)
[2017-05-28 22:20] LABS: Magnesium 2.3 mg/dL (1.6-2.6); Potassium 4.1 mmol/L (3.5-5.1)
[2017-05-28] MEDS: METOPROLOL TARTRATE 1MG/1ML-5ML VIAL IV PRN (22:50)
[2017-05-28] MEDS: TEMAZEPAM 15 MG CAP PO PRN (23:38)
[2017-05-29] VITALS (47 sets, daily range): BP systolic 95–158; BP diastolic 40–108
[2017-05-29] MEDS: MORPHINE SULFATE 4 MG/ML SYR/VIAL IV PRN ×2 (02:51→10:14)
[2017-05-29] MEDS: LIDOCAINE 4MG/ML IV SOLN 500 ML IV SCH (02:51)
[2017-05-29] MEDS: LORazepam 0.5 MG TAB PO PRN (03:45)
[2017-05-29] MEDS: MEXILETINE HYDROCHLORIDE 150 MG CAP PO SCH (05:53)
[2017-05-29] MEDS: PRO-STAT 64 30ML PO SCH (08:00)
[2017-05-29] MEDS ORDERED: MORPHINE SULFATE 4 MG/ML SYR/VIAL ONE (10:05)
[2017-05-29] MEDS: MULTIPLE VITAMIN TAB PO SCH (10:11)
[2017-05-29] MEDS: ENOXAPARIN SOD 30 MG/0.3 ML SYRINGE SC SCH (10:11)
[2017-05-29] MEDS: CYANOCOBALAMIN 500 MCG TAB PO SCH (10:11)
[2017-05-29] MEDS: AMIODARONE HCL 200 MG TAB PO SCH (10:11)
[2017-05-29] MEDS: SPIRONOLACTONE 25 MG TAB PO SCH (10:12)
[2017-05-29] MEDS: PANTOPRAZOLE 40 MG TAB PO SCH (10:12)
[2017-05-29] MEDS: CARVEDILOL 12.5 MG TAB PO SCH (10:13)
[2017-05-29] MEDS: MAGNESIUM OXIDE 400 MG TAB PO SCH (10:15)
[2017-05-29] MEDS: ASPirin 81 mg TAB PO SCH (10:15)
== END 2017-05-29 12:02 | disposition short-term general hospital (02) | DRG 280 ==
LOC: ER 08:00 → EDBD 08:00 → TELE 08:01 → ICU WEST 21:35
PROVIDERS: ADMIT Internal Medicine; ATTEND Internal Medicine
PROC: 02HV33Z Insertion of Infusion Device into Superior Vena Cava, Percutaneous Approach (ICD-10-PCS; principal; 2017-05-25)
PROC: 4B02XTZ Measurement of Cardiac Defibrillator, External Approach (ICD-10-PCS; 2017-05-25)
DX: I21.4 Non-ST elevation (NSTEMI) myocardial infarction (principal); I49.01 Ventricular fibrillation; C90.00 Multiple myeloma not having achieved remission; E87.1 Hypo-osmolality and hyponatremia; I31.3 Pericardial effusion (noninflammatory); E44.0 Moderate protein-calorie malnutrition; I47.2 Ventricular tachycardia; I11.9 Hypertensive heart disease without heart failure; R79.89 Other specified abnormal findings of blood chemistry; E66.9 Obesity, unspecified; E78.5 Hyperlipidemia, unspecified; K80.20 Calculus of gallbladder without cholecystitis without obstruction; I48.91 Unspecified atrial fibrillation; E87.6 Hypokalemia; I49.3 Ventricular premature depolarization; Z82.49 Family history of ischemic heart disease and other diseases of the circulatory system; Z86.79 Personal history of other diseases of the circulatory system; Z92.21 Personal history of antineoplastic chemotherapy; Z95.810 Presence of automatic (implantable) cardiac defibrillator; Z98.84 Bariatric surgery status; Z68.32 Body mass index [BMI] 32.0-32.9, adult
CPT/HCPCS: 36415; 71045; 71046; 71275; 76705; 80048; 80053; 80061; 81001; 82150; 82550; 83690; 83735; 84132; 84443; 84484; 85007; 85025; 85027; 85379; 85610; 85730; 87081; 93005; 93289; 93306; 93970; 96372; 96374; J2250; J3480; J7060